=== PATIENT | male | born 1935 | race Caucasian/White ===

== ENCOUNTER → 2016-07-07 | Outpatient (CLI) | payer OTHER | END | disposition home or self-care (01) | LOC: C.PATHSPEC 14:38 | PROVIDERS: ATTEND Dermatology | DX: C44.619 Basal cell carcinoma of skin of left upper limb, including shoulder (principal) ==

== ENCOUNTER → 2016-08-06 | Outpatient (CLI) | payer OTHER ==
[2016-08-06 16:41] LABS: BASO % 0.2 %; BASO ABS # 0.01 K/uL (0-0.2); COMPLETE YES; EOS % 2.6 %; HEMATOCRIT 43.6 % (42-52); IG% 0.2 %; LYMPH % 36.9 %; LYMPH ABS # 2.43 K/uL (1.2-3.4); MEAN CORPUSCULAR HEMOGLOBIN 30.7 pg (25-34); MEAN CORPUSCULAR HGB CONC 35.3 g/dl (32-36); MEAN PLATELET VOLUME 11.2 fL (7.4-10.4); MONO % 9.9 %; NEUT % 50.2 %; PLATELET COUNT 144 K/uL (130-400); RED BLOOD COUNT 5.01 M/uL (4.7-6.1); WHITE BLOOD COUNT 6.58 K/uL (4.8-10.8)
[2016-08-06 16:48] LABS: BLOOD UREA NITROGEN 15 mg/dl (7-18); BUN/CREATININE RATIO 16.1 (10-20); CALCIUM 8.9 mg/dl (8.5-10.1); CARBON DIOXIDE 28 mmol/L (21-32); CHLORIDE 102 mmol/L (98-107); CREATININE 0.94 mg/dl (0.60-1.40); GLUCOSE 179 mg/dl (70-99); POTASSIUM 4.2 mmol/L (3.5-5.1); SODIUM 137 mmol/L (136-145)
== END | disposition home or self-care (01) ==
LOC: C.LAB1850 14:58
PROVIDERS: ATTEND Internal Medicine
DX: R31.9 Hematuria, unspecified (principal)

== ENCOUNTER → 2016-08-10 | Outpatient (CLI) | payer OTHER ==
--- NOTE | 2016-08-10 09:10 | DIAGNOSTIC IMAGING REPORT ---
ABDOMINAL AORTIC ULTRASOUND CLINICAL HISTORY: Status post abdominal aortic aneurysm repair. Blood in urine. COMPARISON STUDY: CTA November 23, 2013 and abdominal aortic ultrasound April 30, 2006. FINDINGS: The proximal abdominal aorta is obscured by overlying bowel gas. A bifurcated aortoiliac graft is noted although suboptimally assessed by ultrasound. The aneurysm sac of the distal abdominal aorta measures 3.5 x 3.4 cm. This has decreased in size since exam of November 23, 2013. Stent appears grossly patent. 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 This is unchanged. IMPRESSION: 1. Redemonstration of the bifurcated aortoiliac stent graft, suboptimally assessed by ultrasound. Aneurysm sac has likely decreased in size since exam of November 23, 2013. 2. No change in size of the ectatic bilateral common iliac arteries since prior CT. Electronically signed by: Nura Dumont M.D. 08/10/2016 9:08 AM Dictated Date/Time: 08/10/2016 9:03 AM
== END | disposition home or self-care (01) ==
LOC: C.ULTR 07:42
PROVIDERS: ATTEND Internal Medicine
DX: R31.9 Hematuria, unspecified (principal); Z98.890 Other specified postprocedural states

== ENCOUNTER → 2016-08-27 | Outpatient (CLI) | payer OTHER ==
[~2016-08-27] MED LIST: OPTIRAY 320 IV PRN
--- NOTE | 2016-08-27 13:19 | DIAGNOSTIC IMAGING REPORT ---
CT ABD/PELVIS COMBO CLINICAL HISTORY: Abdominal pain, elevated PSA. Anal fissure. COMPARISON STUDY: 11/23/2013 TECHNIQUE: Unenhanced images were obtained through the abdomen and pelvis. The patient was injected with 50 cc of Optiray 320. After 5 minute delay, the patient was reimaged in a dynamic helical fashion during intravenous administration of an additional 66 cc of Optiray 320 CT DOSE: 1724.84 mGycm FINDINGS: Lower chest: There is basilar interstitial thickening/scarring. Underlying emphysema is suspected. Liver: There is an indeterminate 18 mm hypodense lesion within the right hepatic lobe immediately beneath the dome of the diaphragm. This was not visualized the prior study. No additional hepatic lesions are visualized. Gallbladder: Unremarkable. Spleen: Normal in size and attenuation. Pancreas: Unremarkable. Adrenal glands: Unremarkable. Kidneys: No renal, ureteral, or bladder calculi are visualized. No solid renal masses are visualized. No collecting system lesions are evident. Bowel: There are no transition zones indicate bowel obstruction. The appendix appears normal. There is no acute diverticulitis. Peritoneum: There is no intraperitoneal free air or abdominal ascites. Vasculature: There is aortic aneurysm which has been repaired utilizing aorta iliac endograft. Adenopathy: None. Pelvic viscera: The prostate is enlarged measuring 57 mm. Skeletal structures: No destructive osseous lesions are seen. IMPRESSION: 1. No renal, ureteral, or bladder calculi identified 2. Prostatomegaly 3. No evidence of bowel obstruction. No evidence of free air 4. Indeterminate 19 mm hypodense lesion within the right lobe of the liver. This was not visualized on the prior 2013 study. Electronically signed by: Bill Akers M.D. 08/27/2016 1:18 PM Dictated Date/Time: 08/27/2016 1:10 PM
== END | disposition home or self-care (01) ==
LOC: C.CTS 12:39
PROVIDERS: ATTEND Urology
DX: C44.41 Basal cell carcinoma of skin of scalp and neck (principal); C44.619 Basal cell carcinoma of skin of left upper limb, including shoulder; K21.9 Gastro-esophageal reflux disease without esophagitis; K60.2 Anal fissure, unspecified; R31.9 Hematuria, unspecified; L57.0 Actinic keratosis; R97.20 Elevated prostate specific antigen [PSA]; N40.0 Benign prostatic hyperplasia without lower urinary tract symptoms

== ENCOUNTER → 2016-09-21 | Outpatient (CLI) | payer OTHER ==
[2016-09-21 11:10] LABS: BASO % 0.2 %; BASO ABS # 0.01 K/uL (0-0.2); COMPLETE YES; EOS % 3.7 %; HEMATOCRIT 43.8 % (42-52); IG% 0.2 %; LYMPH % 32.6 %; LYMPH ABS # 1.93 K/uL (1.2-3.4); MEAN CELL VOLUME 86.1 fL (80-100); MEAN CORPUSCULAR HEMOGLOBIN 30.5 pg (25-34); MEAN CORPUSCULAR HGB CONC 35.4 g/dl (32-36); MEAN PLATELET VOLUME 10.9 fL (7.4-10.4); MONO % 7.1 %; NEUT % 56.2 %; PLATELET COUNT 132 K/uL (130-400); RED BLOOD COUNT 5.09 M/uL (4.7-6.1); WHITE BLOOD COUNT 5.92 K/uL (4.8-10.8)
[2016-09-21 11:49] LABS: ALT/SGPT 38 U/L (12-78); AST/SGOT 22 U/L (15-37); BLOOD UREA NITROGEN 13 mg/dl (7-18); BUN/CREATININE RATIO 12.6 (10-20); CALCIUM 8.8 mg/dl (8.5-10.1); CARBON DIOXIDE 30 mmol/L (21-32); CHLORIDE 102 mmol/L (98-107); GLUCOSE 252 mg/dl (70-99); POTASSIUM 4.1 mmol/L (3.5-5.1); SODIUM 139 mmol/L (136-145)
[2016-09-21 11:52] LABS: ALB/GLOB RATIO 1.1 (0.9-2); ALKALINE PHOSPHATASE 73 U/L (45-117); CHOLESTEROL 136 mg/dl (0-200); CHOLESTEROL/HDL RATIO 3.5; HDL CHOLESTEROL 39 mg/dl; LDL CHOLESTEROL CALCULATED 63 mg/dl; TRIGLYCERIDES 171 mg/dl (0-150); VERY LOW DENSITY LIPOPROT CALC 34 mg/dl
[2016-09-21 12:02] LABS: RATIO 20.9 mcg/mg (0-30.0)
[2016-09-21 12:27] LABS: ESTIMATED AVERAGE GLUCOSE 186 mg/dl; HA1C FLAG Normal (Normal)
== END | disposition home or self-care (01) ==
LOC: C.LAB1850 10:20
PROVIDERS: ATTEND Internal Medicine
DX: E11.65 Type 2 diabetes mellitus with hyperglycemia (principal); I10 Essential (primary) hypertension

== ENCOUNTER → 2017-03-24 | Outpatient (CLI) | payer OTHER ==
[2017-03-24 12:59] LABS: ALT/SGPT 34 U/L (12-78); AST/SGOT 23 U/L (15-37); BLOOD UREA NITROGEN 13 mg/dl (7-18); BUN/CREATININE RATIO 14.6 (10-20); CALCIUM 9.1 mg/dl (8.5-10.1); CARBON DIOXIDE 28 mmol/L (21-32); CHLORIDE 103 mmol/L (98-107); CREATININE 0.87 mg/dl (0.60-1.40); GLUCOSE 157 mg/dl (70-99); POTASSIUM 4.2 mmol/L (3.5-5.1); SODIUM 139 mmol/L (136-145)
[2017-03-24 13:02] LABS: ALB/GLOB RATIO 1.3 (0.9-2); ALKALINE PHOSPHATASE 80 U/L (45-117)
[2017-03-24 13:08] LABS: ESTIMATED AVERAGE GLUCOSE 177 mg/dl; HA1C FLAG Normal (Normal)
[2017-03-24 13:14] LABS: RATIO 32.6 mcg/mg (0-30.0)
== END | disposition home or self-care (01) ==
LOC: C.LAB1850 09:50
PROVIDERS: ATTEND Internal Medicine
DX: E11.65 Type 2 diabetes mellitus with hyperglycemia (principal)

== ENCOUNTER → 2017-07-06 | Outpatient (CLI) | payer OTHER | END | disposition home or self-care (01) | LOC: C.PATHSPEC 16:42 | PROVIDERS: ATTEND Dermatology | DX: C44.91 Basal cell carcinoma of skin, unspecified (principal) ==

== ENCOUNTER → 2017-07-26 | Outpatient (CLI) | payer OTHER | END | disposition home or self-care (01) | LOC: C.LABSPEC 16:41 | PROVIDERS: ATTEND Nurse Practitioner Adult Health | DX: R32 Unspecified urinary incontinence (principal); R30.0 Dysuria ==

== ENCOUNTER → 2017-09-13 | Outpatient (CLI) | payer OTHER ==
[2017-09-13 10:06] LABS: ALT/SGPT 26 U/L (12-78); BLOOD UREA NITROGEN 14 mg/dl (7-18); CALCIUM 9.3 mg/dl (8.5-10.1); CARBON DIOXIDE 31 mmol/L (21-32); CHOLESTEROL 117 mg/dl (0-200); CREATININE 0.91 mg/dl (0.60-1.40); GLUCOSE 144 mg/dl (70-99); POTASSIUM 4.2 mmol/L (3.5-5.1); SODIUM 138 mmol/L (136-145)
[2017-09-13 10:07] LABS: HEMOGLOBIN A1C 7.4 % (4.5-5.6)
[2017-09-13 10:17] LABS: ALKALINE PHOSPHATASE 75 U/L (45-117); AST/SGOT 21 U/L (15-37); LDL CHOLESTEROL CALCULATED 57 mg/dl; TOTAL PROTEIN 7.5 gm/dl (6.4-8.2)
== END | disposition home or self-care (01) ==
LOC: C.LAB1850 08:24
PROVIDERS: ATTEND Internal Medicine
DX: E11.65 Type 2 diabetes mellitus with hyperglycemia (principal)

== ENCOUNTER → 2017-11-03 | Outpatient (CLI) | payer OTHER | END | disposition home or self-care (01) | LOC: C.PATHSPEC 17:27 | PROVIDERS: ATTEND Dermatology | DX: L82.1 Other seborrheic keratosis (principal) ==

== ENCOUNTER 2019-06-08 06:17 | Inpatient (IN) ==
[2019-06-08] MEDS ORDERED: SODIUM CHLORIDE 0.9% 1000ML 1,000 ML IV SCH (06:48)
[2019-06-08 06:54] LABS: Basophils # (auto) 0.02 K/uL (0-0.2); Basophils % (auto) 0.2 %; Eosinophils # (auto) 0.14 K/uL (0-0.5); Eosinophils % (auto) 1.4 %; Hematocrit (blood only) 39.6 % (42-52); Hemoglobin 13.8 g/dL (14.0-18.0); Immature Granulocytes # (auto) 0.09 K/uL (0.00-0.02); Immature Granulocytes % (auto) 0.9 %; Lymphocytes # (auto) 1.76 K/uL (1.2-3.4); Lymphocytes % (auto) 17.6 %; Mean Corpuscular Hemoglobin 30.3 pg (25-34); Mean Corpuscular Hgb Conc 34.8 g/dL (32-36); Mean Corpuscular Volume 86.8 fL (80-100); Mean Platelet Volume 10.8 fL (7.4-10.4); Monocytes # (auto) 0.74 K/uL (0.11-0.59); Monocytes % (auto) 7.4 %; Neutrophils # (auto) 7.26 K/uL (1.4-6.5); Neutrophils % (auto) 72.5 %; Platelet Count 256 K/uL (130-400); RDW Coefficient of Variation 13.9 % (11.5-14.5); RDW Standard Deviation 43.8 fL (36.4-46.3); Red Blood Count 4.56 M/uL (4.7-6.1); White Blood Count 10.01 K/uL (4.8-10.8)
[2019-06-08 07:01] LABS: Albumin Level 2.5 gm/dl (3.4-5.0); BUN Creatinine Ratio 16.7 (10-20); Calcium 8.8 mg/dl (8.5-10.1); Creatinine Clr Calc Pharmacy 81.2 ml/min; Est GFR (African American) 99.2; Est GFR (Non-African American) 85.6; Magnesium 2.2 mg/dl (1.8-2.4)
[2019-06-08 07:06] LABS: Albumin Globulin Ratio 0.5 (0.9-2); Bilirubin,Total 0.9 mg/dl (0.2-1); Globulin 4.7 gm/dl (2.5-4.0); Total Protein 7.2 gm/dl (6.4-8.2); Troponin I 0.017 ng/ml (0-0.045)
--- NOTE | 2019-06-08 07:19 | Emergency Department Note ---
Entered by Alexis Fisher acting as a scribe for Torrie Juarez DO History of Present Illness General Chief complaint: Cough Stated complaint: COUGH Time Seen by Provider: 06/08/19 06:32 Source: patient History of Present Illness Provider complaint: Cough Onset (ago): week(s) 2 Location: chest Pain Consistency: + constant Relieved By: + none Associated symptoms: + denies other symptoms (Diarrhea), + fever/chills (No fevers), + loss of appetite and + weakness; no chest pain and no nausea/vomiting The patient is an 83 year old male who presents to the Emergency Room with complaints of a constant dry cough that has been ongoing for the past 2 weeks. The patient states the cough is dry but sometimes he is able to bring up a white phlegm. The patient reports that nothing seems to help improve it. Per the patient's , the patient has been getting increasingly weak since the onset of the cough. He also has lost his appetite. The patient adds that he has intermittent chills but denies any fevers, chest pain, nausea, vomiting, or diarrhea. The patient admits to being around people with similar symptoms. Pt states he did get a flu shot this year. No prior pneumonia shot. No recent travel. Home Medications Home Medications Medication Instructions Recorded Confirmed Type hydrochlorothiazide 12.5 mg tablet 12.5 mg PO DAILY #30 tab 01/23/19 06/08/19 Rx metoprolol tartrate 50 mg tablet 50 mg PO BID #60 tab 02/09/19 06/08/19 Rx blood sugar diagnostic #50 ea 02/16/19 03/28/19 Rx aspirin 81 mg tablet,delayed 81 mg PO BID #30 tab 03/26/19 06/08/19 History release cyanocobalamin (vitamin B-12) 1,000 mcg PO DAILY #100 tab 03/26/19 06/08/19 History 1,000 mcg tablet simvastatin 20 mg tablet 20 mg PO QPM 03/26/19 06/08/19 History nitroglycerin 0.4 mg sublingual 0.4 mg SL ONCE PRN #30 tab 03/28/19 06/08/19 Rx tablet Centrum Silver 1 tab PO DAILY 06/08/19 06/08/19 History cholecalciferol (vitamin D3) 2,000 unit PO DAILY 06/08/19 06/08/19 History [Vitamin D3] omega [id number]-gob-fish oil [Fish Oil] 1 cap PO DAILY 06/08/19 06/08/19 History pyridoxine (vitamin B6) [Vitamin 100 mg PO DAILY 06/08/19 06/08/19 History B-6] azithromycin [Zithromax] 500 mg PO QAM #1 tab 06/09/19 Rx cefdinir 300 mg PO BID #1 cap 06/09/19 Rx ipratropium-albuterol 3 ml NEB QIDR #1 ml 06/09/19 Rx Allergies Allergy/AdvReac Type Severity Reaction Status Date / Time No Known Allergies Allergy Unverified 06/08/19 06:30 Past Med/Surg History Medical History CVA (cerebral vascular accident) (Acute) Diabetes mellitus type 2, uncontrolled (Acute) Gait disturbance (Acute) Generalized osteoarthritis of multiple sites (Acute) History of elevated PSA (Acute) Hyperlipidemia (Acute) Hypertension (Acute) Impaired sensation (Acute) Liver lesion (Acute) Low back pain (Acute) Pulmonary emphysema (Acute) Seborrheic keratosis (Acute) Skin lesion of face (Acute) Urinary incontinence (Acute) Vitamin B12 deficiency (Acute) Surgical History S/P aortic aneurysm repair S/P arthroscopic partial medial meniscectomy S/P arthroscopy of knee S/P CABG x 3 S/P rotator cuff repair Status post AAA (abdominal aortic aneurysm) repair (Acute) Family History Brother Bowel cancer Non Hodgkin's lymphoma Mother Cardiac cancer Diabetes Uterine cancer Father Gallbladder cancer Social History Preferred Language: Luxembourgish Communication Ability: Effective Visual Impairment: No Limitations Hearing Ability: Normal Tax Specialist Required: No Beliefs That Will Affect Care: None marital status: Current Living Situation: Spouse current occupational status: retired Feels Safe at Home: Yes Smoking Status: Former smoker Hx Alcohol Use: No Hx Substance Use: No Seatbelt Use: always Review of Systems See HPI for pertinent positives & negatives. and A total of 10 systems reviewed and were otherwise negative Physical Exam Vital Signs Vital Signs - 24 hr 06/08/19 06:25 06/08/19 07:41 06/08/19 08:24 Temperature 98.2 F Temperature Source Oral Pulse Rate 80 Pulse Rate [Right Finger] 68 72 Respiratory Rate 18 20 16 Respiratory Effort / Characteristics Non-Labored Spontaneous Respiratory Depth Normal Blood Pressure 143/74 H Blood Pressure [Right Arm] 130/74 Blood Pressure Mean 97 Blood Pressure Mean [Right Arm] 92 Pulse Oximetry 96 96 97 Oxygen Delivery Method Room Air Room Air Room Air Sepsis Recent Fever Within 48 Hours No Sepsis New/Unexplained Change in Mental Status No Sepsis Action Taken by Nursing No Action Required 06/08/19 08:46 Temperature Temperature Source Pulse Rate Pulse Rate [Right Finger] 92 H Respiratory Rate 24 Respiratory Effort / Characteristics Non-Labored Respiratory Depth Normal Blood Pressure Blood Pressure [Right Arm] 147/70 H Blood Pressure Mean Blood Pressure Mean [Right Arm] 95 Pulse Oximetry 96 Oxygen Delivery Method Room Air Sepsis Recent Fever Within 48 Hours Sepsis New/Unexplained Change in Mental Status Sepsis Action Taken by Nursing GENERAL: alert, well appearing, well nourished, no distress, non-toxic EYE EXAM: normal conjunctiva, PERRL and EOM's grossly intact OROPHARYNX: no exudate, no erythema, lips, buccal mucosa, and tongue normal and mucous membranes are dry NECK: supple, no nuchal rigidity, no adenopathy, non-tender LUNGS: Diminished breath sounds bilaterally with no wheezes, rhonchi, or rales. Normal chest wall mechanics HEART: no murmurs, S1 normal and S2 normal CHEST: Sternotomy scar on chest. ABDOMEN: abdomen soft, non-tender, normo-active bowel sounds, no masses, no rebound or guarding. BACK: Back is symmetrical on inspection and there is no deformity, no midline tenderness, no CVA tenderness. SKIN: no rashes and no bruising UPPER EXTREMITIES: upper extremities are grossly normal. FROM, nml pulses b/l. LOWER EXTREMITIES: 2+ pedal edema, 1+ pretibial edema, FROM, nml pulses b/l. NEURO EXAM: Normal sensorium, cranial nerves II-XII grossly intact, normal speech, no gross weakness of arms, no gross weakness of legs. Course Course 0639: Past medical records reviewed. The patient was evaluated in room B05, and a complete history and physical examination were performed. 0759: I reevaluated the patient and he is resting comfortably in bed. He did inform me that he is a former smoker having quit in 1988. I also updated him on results and we discussed the treatment plan which he is agreeable to. 0920: I discussed the patient's case with the resident Dr. Lacy who is working under Dr. Kane [facility]ULL[facility] Hospitalist. They agreed to accept the patient for further evaluation. Consultations Consultation #1: I discussed the patient's case with the resident Dr. Lacy who is working under Dr. Kane BULLOCK Hospitalist. They agreed to accept the patient for further evaluation. Time: 09:20 Administered Medications Discontinued Medications Albuterol (Duoneb) 3 ml NEB NOW STA Stop: 06/08/19 08:03 Last Admin: 06/08/19 08:22 Dose: 3 ml Documented by: [id number] Albuterol (Duoneb) 3 ml NEB QIDR [facility] Stop: 06/09/19 15:01 Last Admin: 06/09/19 15:50 Dose: 3 ml Documented by: [id number] Admin: 06/09/19 11:03 Dose: 3 ml Documented by: [id number] Admin: 06/09/19 07:35 Dose: 3 ml Documented by: [id number] Admin: 06/08/19 19:58 Dose: 3 ml Documented by: [id number] Admin: 06/08/19 15:27 Dose: 3 ml Documented by: [id number] Admin: 06/08/19 13:33 Dose: Not Given Documented by: [id number] Aspirin (Ecotrin Ectab) 81 mg PO BID [facility] Stop: 07/08/19 20:59 Last Admin: 06/09/19 09:20 Dose: 81 mg Documented by: [id number] Admin: 06/08/19 20:08 Dose: 81 mg Documented by: [id number] Azithromycin (Zithromax) 500 mg PO NOW ONE Stop: 06/08/19 07:43 Last Admin: 06/08/19 10:52 Dose: 500 mg Documented by: [id number] Azithromycin (Zithromax) 500 mg PO QAM [facility] Stop: 06/16/19 08:59 Last Admin: 06/09/19 09:21 Dose: 500 mg Documented by: [id number] Cyanocobalamin (Vitamin B-12) 1,000 mcg PO DAILY [facility] Stop: 07/09/19 08:59 Last Admin: 06/09/19 09:20 Dose: 1,000 mcg Documented by: [id number] Enoxaparin Sodium (Lovenox) 40 mg SQ Q24H [facility] Stop: 07/08/19 12:59 Last Admin: 06/09/19 13:31 Dose: 40 mg Documented by: [id number] Admin: 06/08/19 13:46 Dose: 40 mg Documented by: [id number] Hydrochlorothiazide (Hctz) 12.5 mg PO DAILY [facility] Stop: 07/09/19 08:59 Last Admin: 06/09/19 09:19 Dose: Not Given Documented by: [id number] Sodium Chloride (Nss 1000ml) 1,000 mls @ 250 mls/hr IV .Q4H [facility] Stop: 06/08/19 10:47 Last Infusion: 06/08/19 16:14 Dose: 0 mls/hr Documented by: [id number] Admin: 06/08/19 07:40 Dose: 250 mls/hr Documented by: [id number] Ceftriaxone Sodium (Rocephin) 2,000 mg in 70 mls @ 140 mls/hr IV NOW STA Stop: 06/08/19 08:11 Last Infusion: 06/08/19 09:28 Dose: 0 mls/hr Documented by: [id number] Admin: 06/08/19 08:42 Dose: 140 mls/hr Documented by: [id number] Piperacillin Sod/Tazobactam Sod (Zosyn) 4.5 gm in 120 mls @ 240 mls/hr IV NOW ONE Stop: 06/08/19 08:37 Last Infusion: 06/08/19 10:56 Dose: 0 mls/hr Documented by: [id number] Admin: 06/08/19 09:29 Dose: 240 mls/hr Documented by: [id number] Ceftriaxone Sodium 2,000 mg/ (Dextrose) 70 mls @ 140 mls/hr IV Q24H [facility]; Protocol Stop: 06/16/19 08:59 Last Infusion: 06/09/19 09:49 Dose: 0 mls/hr Documented by: [id number] Admin: 06/09/19 09:12 Dose: 140 mls/hr Documented by: [id number] Insulin Aspart (Novolog Flexpen) 0 units SC ACHS [facility] Stop: 07/08/19 11:48 Last Admin: 06/09/19 12:38 Dose: Not Given Documented by: [id number] Cosigned by: [id number] Admin: 06/09/19 09:52 Dose: Not Given Documented by: [id number] Cosigned by: [id number] Admin: 06/08/19 20:13 Dose: Not Given Documented by: [id number] Cosigned by: [id number] Admin: 06/08/19 18:13 Dose: 3 units Documented by: [id number] Cosigned by: [id number] Admin: 06/08/19 13:46 Dose: 3 units Documented by: [id number] Cosigned by: [id number] Ioversol (Optiray 320 100ml) 93 ml IV ONCE PRN PRN Reason: Interaction Checking Stop: 06/12/19 07:51 Last Admin: 06/08/19 07:52 Dose: 93 ml Documented by: [id number] Metoprolol Tartrate (Lopressor) 50 mg PO BID [facility] Stop: 07/08/19 20:59 Last Admin: 06/09/19 09:20 Dose: 50 mg Documented by: [id number] Admin: 06/08/19 20:09 Dose: 50 mg Documented by: [id number] Prednisone (Prednisone) 40 mg PO Q24H [facility] Stop: 07/08/19 11:48 Last Admin: 06/09/19 12:33 Dose: 40 mg Documented by: [id number] Admin: 06/08/19 13:45 Dose: 40 mg Documented by: [id number] Pyridoxine HCl (Vitamin B-6) 100 mg PO DAILY [facility] Stop: 07/09/19 08:59 Last Admin: 06/09/19 09:20 Dose: 100 mg Documented by: [id number] Simvastatin (Zocor) 20 mg PO QPM [facility] Stop: 07/08/19 20:59 Last Admin: 06/08/19 20:09 Dose: 20 mg Documented by: [id number] Vitamin D (Vitamin D3) 2,000 units PO DAILY [facility] Stop: 07/09/19 08:59 Last Admin: 06/09/19 09:21 Dose: 2,000 units Documented by: [id number] Medical Decision Making Differential Diagnosis Differential diagnoses includes but is not limited to pneumonia, bronchitis, COPD/Asthma exacerbation, pneumothorax, pulmonary embolism, congestive heart failure, acute coronary syndrome, amongst others. Medical Records Attestation: I reviewed the patient's medical records. Home Medications Current Medication List: was personally reviewed by me Laboratory Data Attestation: I reviewed the patient's lab results. Result diagrams: 06/09/19 07:38 06/09/19 07:38 Lab Results 06/08/19 06/08/19 06/08/19 Range/Units 06:02 06:02 06:02 WBC 10.01 (4.8-10.8) K/uL RBC 4.56 L (4.7-6.1) M/uL Hgb 13.8 L (14.0-18.0) g/dL Hct 39.6 L (42-52) % MCV 86.8 (80-100) fL MCH 30.3 (25-34) pg MCHC 34.8 (32-36) g/dL RDW Std Deviation 43.8 (36.4-46.3) fL RDW Coeff of Gabriela 13.9 (11.5-14.5) % Plt Count 256 (130-400) K/uL MPV 10.8 H (7.4-10.4) fL Immature Gran % (Auto) 0.9 % Neut % (Auto) 72.5 % Lymph % (Auto) 17.6 % Pope % (Auto) 7.4 % Eos % (Auto) 1.4 % Baso % (Auto) 0.2 % Immature Gran # (Auto) 0.09 H (0.00-0.02) K/uL Neut # (Auto) 7.26 H (1.4-6.5) K/uL Lymph # (Auto) 1.76 (1.2-3.4) K/uL Pope # (Auto) 0.74 H (0.11-0.59) K/uL Eos # (Auto) 0.14 (0-0.5) K/uL Baso # (Auto) 0.02 (0-0.2) K/uL Sodium 135 L (136-145) mmol/L Potassium 4.0 (3.5-5.1) mmol/L Chloride 101 (98-107) mmol/L Carbon Dioxide 26 (21-32) mmol/L Anion Gap 8.0 (3-11) BUN 13 (7-18) mg/dl Creatinine 0.76 (0.6-1.4) mg/dl Est Cr Clr Drug Dosing 81.2 ml/min Est GFR ( Amer) 99.2 Est GFR (Non-Af Amer) 85.6 BUN/Creatinine Ratio 16.7 (10-20) Glucose 150 H (70-99) mg/dl Calcium 8.8 (8.5-10.1) mg/dl Magnesium 2.2 (1.8-2.4) mg/dl Total Bilirubin 0.9 (0.2-1) mg/dl AST 67 H (15-37) U/L ALT 73 (12-78) U/L Alkaline Phosphatase 109 (45-117) U/L Troponin I 0.017 (0-0.045) ng/ml NT-Pro-B Natriuret Pep 2210 H (0-1800) pg/ml Total Protein 7.2 (6.4-8.2) gm/dl Albumin 2.5 L (3.4-5.0) gm/dl Globulin 4.7 H (2.5-4.0) gm/dl Albumin/Globulin Ratio 0.5 L (0.9-2) Lipase 116 (73-393) U/L Procalcitonin 0.06 (0-0.5) ng/ml Influenza Type A (PCR) (Neg) Influenza Type B (PCR) (Neg) 06/08/19 Range/Units 06:46 WBC (4.8-10.8) K/uL RBC (4.7-6.1) M/uL Hgb (14.0-18.0) g/dL Hct (42-52) % MCV (80-100) fL MCH (25-34) pg MCHC (32-36) g/dL RDW Std Deviation (36.4-46.3) fL RDW Coeff of Gabriela (11.5-14.5) % Plt Count (130-400) K/uL MPV (7.4-10.4) fL Immature Gran % (Auto) % Neut % (Auto) % Lymph % (Auto) % Pope % (Auto) % Eos % (Auto) % Baso % (Auto) % Immature Gran # (Auto) (0.00-0.02) K/uL Neut # (Auto) (1.4-6.5) K/uL Lymph # (Auto) (1.2-3.4) K/uL Pope # (Auto) (0.11-0.59) K/uL Eos # (Auto) (0-0.5) K/uL Baso # (Auto) (0-0.2) K/uL Sodium (136-145) mmol/L Potassium (3.5-5.1) mmol/L Chloride (98-107) mmol/L Carbon Dioxide (21-32) mmol/L Anion Gap (3-11) BUN (7-18) mg/dl Creatinine (0.6-1.4) mg/dl Est Cr Clr Drug Dosing ml/min Est GFR ( Amer) Est GFR (Non-Af Amer) BUN/Creatinine Ratio (10-20) Glucose (70-99) mg/dl Calcium (8.5-10.1) mg/dl Magnesium (1.8-2.4) mg/dl Total Bilirubin (0.2-1) mg/dl AST (15-37) U/L ALT (12-78) U/L Alkaline Phosphatase (45-117) U/L Troponin I (0-0.045) ng/ml NT-Pro-B Natriuret Pep (0-1800) pg/ml Total Protein (6.4-8.2) gm/dl Albumin (3.4-5.0) gm/dl Globulin (2.5-4.0) gm/dl Albumin/Globulin Ratio (0.9-2) Lipase (73-393) U/L Procalcitonin (0-0.5) ng/ml Influenza Type A (PCR) Neg for Influ A (Neg) Influenza Type B (PCR) Neg for Influ B (Neg) Imaging Data Radiologist's Impression: Radiology results as stated below per my review and the radiologist's interpretation: XR chest 2V PA/lateral CLINICAL HISTORY: 83 years-old Male presenting with cough. TECHNIQUE: Portable upright AP view of the chest was obtained. COMPARISON: 10/28/2009. FINDINGS: Median sternotomy wires. Atherosclerosis of the aortic arch. Cardiac silhouette normal in size. Dense patchy peripheral and basilar predominant opacities bilaterally. Underlying coarsened reticular lung markings. Trace left pleural effusion may be present. No pneumothorax. Possible underlying osteopenia. Upper abdomen normal. IMPRESSION: 1. Patchy bilateral peripheral and basilar predominant infiltrates concerning for multifocal pneumonia. Further evaluation with chest CT to be considered. Electronically signed by: Raul Martin M.D. 06/08/2019 7:22 AM ADDENDUM Additional impression: 6. Indeterminate 5 cm hepatic mass. The report will be called/faxed according to standard departmental protocol. Electronically signed by: Raul Martin M.D. 06/08/2019 8:[address] chest w con CLINICAL HISTORY: 83 years-old Male presenting with multilobar pneumonia. TECHNIQUE: Multidetector CT imaging of the chest was performed after the administration of intravenous contrast. IV contrast: 93 mL of Optiray 320. One or more dose lowering techniques were used consistent with the principles of ALARA (as low as reasonably achievable), including automatic exposure control, mA or kV adjustment to individual patient size, and/or use of iterative reconstruction. COMPARISON: Chest x-ray performed earlier today. CT DOSE (mGy.cm): The estimated cumulative dose is 457.15 mGy.cm. FINDINGS: Fleet Assistant topogram: Median sternotomy wires. Soft tissues: Normal thyroid and thoracic inlet. Prominent subcarinal lymph node conglomerate. Small bilateral hilar lymph nodes also noted. Several lymph nodes demonstrate calcification in both the mediastinum and j carlos suggesting a history of chronic granulomatous disease. Atherosclerosis of the aorta. Median sternotomy with postsurgical changes of coronary artery bypass grafting. Normal heart size. Coronary artery and aortic valve calcification. Small bilateral pleural effusions, left greater than right. Heterogeneous lesion in the right hepatic lobe measuring nearly 5 cm, indeterminate. Lungs and airways: No pneumothorax. Trace debris noted in the lower trachea. Pulmonary arteries are not significantly enlarged relative to adjacent bronchi. No interlobular septal thickening. Extensive peripheral and basilar predominant groundglass and solid consolidation involving the lungs bilaterally though greater on the left. Masslike consolidation is evident in the left lower lobe. Patchy scattered ill-defined groundglass opacities also noted. Few nodules are suggested though the multifocal consolidation limits evaluation for pulmonary nodule. Musculoskeletal: Degenerative changes of the spine. Flowing anterior osteophytosis or ossification of the anterior longitudinal ligament consistent with diffuse idiopathic skeletal hyperostosis. IMPRESSION: 1. Multifocal bilateral peripheral and dependent predominant groundglass and solid consolidation. Some regions of solid consolidation or masslike most notably in the left lower lobe. The appearance is favored to represent multifocal pneumonia. Follow-up is necessary to ensure the absence of underlying neoplasm. 2. Small bilateral parapneumonic effusions, left greater than right. 3. Suspected reactive mediastinal and hilar lymphadenopathy. 4. Evidence of old granulomatous disease. 5. Postsurgical changes of CABG. Electronically signed by: Raul Martin M.D. 06/08/2019 8:10 AM ECG Data Attestation: I personally reviewed and interpreted this ECG as follows: Indication: + SOB/dyspnea and + weakness Rate (beats per minute): 74 Rhythm: + normal sinus ECG Intervals/blocks: + Normal QRS, + Normal QT, + Normal VA and + Normal QT-c (452) ECG Varna: + Normal ECG ST segments: no ST depression and no ST elevation ECG Findings: no PACs and no PVCs Blood Pressure Blood Pressure Findings: Elevated blood pressure Blood Pressure Disposition: further management by hospitalist MDM Narrative PORT/PSI score 111 Pt well appearing despite findings during evaluation. No hypoxia and no significant WOB. Other labs reassuring. Pt with known liver mass, no pursuing any treatment. Pt found to have multifocal pneumonia which would certainly coincide with symptoms. Concern given mass for occult neoplasm and post obstructive infection also. VS stable while in the ER. I do not suspect occult cardiac etiology, PE, bacteremia/sepsis. Pt and family aware of results and in agreement with the plan. Impression & Plan Multifocal pneumonia, Liver mass, Dyspnea, Weakness Discharge Plan Visit Data *Final* Discharge Date/Time: 06/08/19 11:15 Chief Complaint: Cough Stated Complaint: COUGH ED Provider: Torrie Juarez Discharge Problem: Multifocal pneumonia, Liver mass, Dyspnea, Weakness Patient Disposition: Admitted As Inpatient Discharge Instructions Interventions: ED Discharge Assessment Last Done: 06/08/19 11:15 Discharge Problem: Dyspnea Qualifiers: Dyspnea type: unspecified Qualified Code(s): R06.00 - Dyspnea, unspecified The scribe's documentation has been prepared under my direction and personally reviewed by me in its entirety. I confirm that the note above accurately reflects all work, treatment, procedures, and medical decision making performed by me.
--- NOTE | 2019-06-08 07:24 | XRay Report ---
XR chest 2V PA/lateral CLINICAL HISTORY: 83 years-old Male presenting with cough. TECHNIQUE: Portable upright AP view of the chest was obtained. COMPARISON: 10/28/2009. FINDINGS: Median sternotomy wires. Atherosclerosis of the aortic arch. Cardiac silhouette normal in size. Dense patchy peripheral and basilar predominant opacities bilaterally. Underlying coarsened reticular lung markings. Trace left pleural effusion may be present. No pneumothorax. Possible underlying osteopeni a. Upper abdomen normal. IMPRESSION: 1. Patchy bilateral peripheral and basilar predominant infiltrates concerning for multifocal pneumon ia. Further evaluation with chest CT to be considered. Electronically signed by: Raul Martin M.D. 06/08/2019 7:22 AM
[2019-06-08 07:29] LABS: Influenza A virus by PCR Neg for Influ A (Neg); Influenza B virus by PCR Neg for Influ B (Neg)
[2019-06-08] MEDS ORDERED: cefTRIAXone SODIUM 2,000 MG/70 ML BAG IV STA (07:42)
[2019-06-08] MEDS ORDERED: AZITHROMYCIN 250 MG TAB PO ONE (07:42)
[2019-06-08] MEDS ORDERED: IOVERSOL 100ml IV PRN (07:52)
[2019-06-08] MEDS ORDERED: ALBUT/IPRATROP 3MG/0.5MG NEB 3 ML VIAL NEB STA (08:02)
[2019-06-08] MEDS ORDERED: PIPERACILL/TAZOBAC CONSULT ACTIVE PRN (08:08)
[2019-06-08] MEDS ORDERED: PIPERACILLIN/TAZOBACTAM 4.5 GM/120 ML BAG IV ONE (08:08)
--- NOTE | 2019-06-08 08:11 | CT Scan Report ---
CT chest w con CLINICAL HISTORY: 83 years-old Male presenting with multilobar pneumonia. TECHNIQUE: Multidetector CT imaging of the chest was performed after the administration of intravenou s contrast. IV contrast: 93 mL of Optiray 320. One or more dose lowering techniques were used consist ent with the principles of ALARA (as low as reasonably achievable), including automatic exposure cont rol, mA or kV adjustment to individual patient size, and/or use of iterative reconstruction. COMPARISON: Chest x-ray performed earlier today. CT DOSE (mGy.cm): The estimated cumulative dose is 457.15 mGy.cm. FINDINGS: Tobacco Cloth Reclaimer topogram: Median sternotomy wires. Soft tissues: Normal thyroid and thoracic inlet. Prominent subcarinal lymph node conglomerate. Small bilateral hilar lymph nodes also noted. Several lymph nodes demonstrate calcification in both the med iastinum and j carlos suggesting a history of chronic granulomatous disease. Atherosclerosis of the aorta . Median sternotomy with postsurgical changes of coronary artery bypass grafting. Normal heart size. Coronary artery and aortic valve calcification. Small bilateral pleural effusions, left greater than right. Heterogeneous lesion in the right hepatic lobe measuring nearly 5 cm, indeterminate. Lungs and airways: No pneumothorax. Trace debris noted in the lower trachea. Pulmonary arteries are n ot significantly enlarged relative to adjacent bronchi. No interlobular septal thickening. Extensive peripheral and basilar predominant groundglass and solid consolidation involving the lungs bilaterall y though greater on the left. Masslike consolidation is evident in the left lower lobe. Patchy scatte red ill-defined groundglass opacities also noted. Few nodules are suggested though the multifocal con solidation limits evaluation for pulmonary nodule. Musculoskeletal: Degenerative changes of the spine. Flowing anterior osteophytosis or ossification of the anterior longitudinal ligament consistent with diffuse idiopathic skeletal hyperostosis. IMPRESSION: 1. Multifocal bilateral peripheral and dependent predominant groundglass and solid consolidation. So me regions of solid consolidation or masslike most notably in the left lower lobe. The appearance is favored to represent multifocal pneumonia. Follow-up is necessary to ensure the absence of underlying neoplasm. 2. Small bilateral parapneumonic effusions, left greater than right. 3. Suspected reactive mediastinal and hilar lymphadenopathy. 4. Evidence of old granulomatous disease. 5. Postsurgical changes of CABG. Electronically signed by: Raul Martin M.D. 06/08/2019 8:10 AM
--- NOTE | 2019-06-08 09:57 | History & Physical Report ---
Date of Service June 08, 2019 Assessment & Plan (1) Cough: 83-year-old male was admitted on 08 June 2019 for cough. Cough, pulmonary opacities, parapneumonic effusion, lymphadenopathy: Primarily cough for the past two weeks. Not much production. No overt chest pain. Questionable subjective fever, some decreased activity, but still able to do most ADLs. Extensive previous smoking history (but no formal COPD diagnosis) and current liver mass puts malignancy higher on the differential. Not completely convinced symptoms all due to bacterial pneumonia. - In ED, afebrile, not tachycardic or tachypneic, rather good blood pressure, with SpO2 96% on room air. WBC 10, influenza negative, BCx sent. BNP 2210. TnI 0.017. EKG is NSR 74 with normal intervals and a PAC. CT chest with contrast notable for groundglass and solid consolidation suggestive of multifocal pneumonia but also small bilateral parapneumonic effusions, old granulomatous disease, and mediastinal/hilar lymphadenopathy. Cancer is not excluded. - In ED, treated with albuterol, Zosyn, Rocephin, and azithromycin. - Will continue on Rocephin and azithromycin for inpatient treatment of CAP. Check a procalcitonin and sputum culture (if possible). Check cardiac echo (due to elevated BNP). Start prednisone 40 mg daily and albuterol nebs prn. Hepatic mass: 5 cm hepatic mass seen on CT chest. Previous outpatient notes mention report of liver lesion in 2017 with patient's decision to only check LFTs and not ultrasound. Admit LFTs notable only for AST 67. - Discussed the above with patient and family. He does not wish to have this liver mass evaluated. Hypoalbuminemia: Admit albumin 2.5. BMI 26. Decreased appetite over past couple of weeks. - Will give boost shakes. Ongoing medical issues: - CAD, history CABG x3 (1999): Continue home aspirin, hydrochlorothiazide, metoprolol, simvastatin. - Diabetes type 2: Mar 2019 HbA1c was 7.3. Not on any home meds for this. Place on insulin sliding scale as inpatient. - Vitamin B12 deficiency: Continue home vitamin 12 supplementation. - Osteoporosis: Continue home vitamin D. Code status: DNR/DNI (confirmed with patient and family at bedside). Diet: Regular. DVT prophy: Lovenox. PT/OT: Ordered. Disbo: Admit to [facility]. (2) Opacity of lung on imaging study: (3) Liver mass: (4) Hypoalbuminemia: (5) CAD (coronary artery disease): (6) Diabetes mellitus type 2, uncontrolled: (7) Vitamin B12 deficiency: (8) Osteoporosis: History of Present Illness Primary Care Provider: Karina Campbell MD 83-year-old male presents with his family requesting evaluation of cough and some mild difficulty breathing. Notes the same over the past two weeks. No known provocation or sick contacts at that time. Questionable subjective fevers and a single episode of diaphoresis during this time. Denies overt chest pain, though ongoing cough is irritating. Has the feeling as if there is some phlegm he cannot quite cough up. Tried some Gely-Linden and Coricidin HBP. Notes a roughly [id number] smoking history but quit in 1988. Otherwise, denies known underlying lung disease. No other acute patient concerns. - On review of systems, patient denies focal pain elsewhere but does say that he has had a decreased appetite and more generalized fatigue over the past 2 weeks. He does not know of any overt recent weight loss. - Of note, on discussion of some of his imaging findings to include his liver mass, patient and family say they know about this. Patient says that he knows this may be cancer but he is okay with that. He says that he is ready to but does not want to do so now. He does not want to get further evaluation of this liver mass. He says right now his goal is to improve his breathing such that he can go home. - Past medical history includes pulmonary emphysema, urinary incontinence, diabetes type 2, osteoarthritis, vitamin B12 deficiency, coronary artery disease, GERD, external hemorrhoids, basal cell cancer, hematuria, previous report of a liver lesion on CT. - Past surgical history includes AAA repair (2011), CABG x 3 vessels (1999), partial medial meniscectomy, rotator cuff repair. - Social history includes quitting smoking in 1988. Denies alcohol use. Lives at home with and family nearby. Allergies Allergy/AdvReac Type Severity Reaction Status Date / Time No Known Allergies Allergy Unverified 06/08/19 06:30 Home Medications Home Medications Medication Instructions Recorded Confirmed Type hydrochlorothiazide 12.5 mg tablet 12.5 mg PO DAILY #30 tab 01/23/19 06/08/19 Rx metoprolol tartrate 50 mg tablet 50 mg PO BID #60 tab 02/09/19 06/08/19 Rx blood sugar diagnostic #50 ea 02/16/19 03/28/19 Rx aspirin 81 mg tablet,delayed 81 mg PO BID #30 tab 03/26/19 06/08/19 History release cyanocobalamin (vitamin B-12) 1,000 mcg PO DAILY #100 tab 03/26/19 06/08/19 History 1,000 mcg tablet simvastatin 20 mg tablet 20 mg PO QPM 03/26/19 06/08/19 History nitroglycerin 0.4 mg sublingual 0.4 mg SL ONCE PRN #30 tab 03/28/19 06/08/19 Rx tablet cholecalciferol (vitamin D3) 2,000 unit PO DAILY 06/08/19 06/08/19 History [Vitamin D3] jololqgd-qsr-VG-lycopen-lutein 1 tab PO DAILY 06/08/19 06/08/19 History [Centrum Silver] omega 7-inq-jdg-fish oil [Fish Oil] 1 cap PO DAILY 06/08/19 06/08/19 History pyridoxine (vitamin B6) [Vitamin 100 mg PO DAILY 06/08/19 06/08/19 History B-6] Past Med/Surg History Medical History CVA (cerebral vascular accident) (Acute) Diabetes mellitus type 2, uncontrolled (Acute) Gait disturbance (Acute) Generalized osteoarthritis of multiple sites (Acute) History of elevated PSA (Acute) Hyperlipidemia (Acute) Hypertension (Acute) Impaired sensation (Acute) Liver lesion (Acute) Low back pain (Acute) Pulmonary emphysema (Acute) Seborrheic keratosis (Acute) Skin lesion of face (Acute) Urinary incontinence (Acute) Vitamin B12 deficiency (Acute) Surgical History S/P aortic aneurysm repair S/P arthroscopic partial medial meniscectomy S/P arthroscopy of knee S/P CABG x 3 S/P rotator cuff repair Status post AAA (abdominal aortic aneurysm) repair (Acute) Family History Brother Bowel cancer Non Hodgkin's lymphoma Mother Cardiac cancer Diabetes Uterine cancer Father Gallbladder cancer Social History Preferred Language: [place] Communication Ability: Effective Visual Impairment: No Limitations Hearing Ability: Normal Lunchroom Monitor Required: No Beliefs That Will Affect Care: None marital status: Current Living Situation: Spouse current occupational status: retired Other Information That Helps Us Care for You: No Feels Safe at Home: Yes Safety Concerns: Feels Safe At This Time Smoking Status: Former smoker Hx Alcohol Use: No Hx Substance Use: No Seatbelt Use: always Review of Systems Review of Systems: Constitutional: Questionable fever. Denies chills. Positive generalized fatigue. Eyes: Denies any visual loss or diplopia ENT: Denies any ear/nose/throat pain or difficulty speaking or swallowing Respiratory: Positive cough. Questionable dyspnea. No hemoptysis. Cardiovascular: Denies any chest pain or feeling of edema Gastrointestinal: Denies any abdominal pain, nausea/vomiting/diarrhea Musculoskeletal: Denies any acute extremity pains, myalgias, or focal weakness Skin: Denies any known acute rashes or lesions Neuro: Denies any headache, acute focal weakness or numbness, or difficulties with speech or swallow. Physical Exam Physical Exam: GENERAL: Awake, alert, well-appearing, in no acute distress. HENT: Normocephalic, atraumatic. Oropharynx unremarkable. EYES: Normal conjunctiva. Sclera non-icteric. NECK: Inspection normal. Supple and full ROM. No nuchal rigidity. CARDIAC: +S1S2 RRR, no murmurs. RESPIRATORY: Clear to auscultation. No wheezes or rales. Normal respiratory effort. Ongoing mildly congested cough. On room air. GI: +BS, soft, non-distended. No tenderness to palpation. No rebound or guarding. Questionable firmness in the right upper quadrant. EXTREMITIES: No pedal edema or calf tenderness. Moving all extremities naturally and easily. NEURO: No gross neuro deficits. Results & Data Vital Signs (Past 12 Hours) Vital Signs Temp Pulse Pulse Resp BP BP Pulse Ox 06/08/19 08:46 92 H 24 147/70 H 96 06/08/19 08:24 72 16 97 06/08/19 07:41 68 20 130/74 96 06/08/19 06:25 36.8 C 80 18 143/74 H 96 Laboratory Results 06/08/19 06/08/19 06/08/19 Range/Units 06:46 06:02 06:02 WBC 10.01 (4.8-10.8) K/uL RBC 4.56 L (4.7-6.1) M/uL Hgb 13.8 L (14.0-18.0) g/dL Hct 39.6 L (42-52) % MCV 86.8 (80-100) fL MCH 30.3 (25-34) pg MCHC 34.8 (32-36) g/dL RDW Std Deviation 43.8 (36.4-46.3) fL RDW Coeff of Gabriela 13.9 (11.5-14.5) % Plt Count 256 (130-400) K/uL MPV 10.8 H (7.4-10.4) fL Immature Gran % (Auto) 0.9 % Neut % (Auto) 72.5 % Lymph % (Auto) 17.6 % Denali % (Auto) 7.4 % Eos % (Auto) 1.4 % Baso % (Auto) 0.2 % Immature Gran # (Auto) 0.09 H (0.00-0.02) K/uL Neut # (Auto) 7.26 H (1.4-6.5) K/uL Lymph # (Auto) 1.76 (1.2-3.4) K/uL Denali # (Auto) 0.74 H (0.11-0.59) K/uL Eos # (Auto) 0.14 (0-0.5) K/uL Baso # (Auto) 0.02 (0-0.2) K/uL Sodium 135 L (136-145) mmol/L Potassium 4.0 (3.5-5.1) mmol/L Chloride 101 (98-107) mmol/L Carbon Dioxide 26 (21-32) mmol/L Anion Gap 8.0 (3-11) BUN 13 (7-18) mg/dl Creatinine 0.76 (0.6-1.4) mg/dl Est Cr Clr Drug Dosing 81.2 ml/min Est GFR ( Amer) 99.2 Est GFR (Non-Af Amer) 85.6 BUN/Creatinine Ratio 16.7 (10-20) Glucose 150 H (70-99) mg/dl Calcium 8.8 (8.5-10.1) mg/dl Magnesium 2.2 (1.8-2.4) mg/dl Total Bilirubin 0.9 (0.2-1) mg/dl AST 67 H (15-37) U/L ALT 73 (12-78) U/L Alkaline Phosphatase 109 (45-117) U/L Troponin I 0.017 (0-0.045) ng/ml NT-Pro-B Natriuret Pep 2210 H (0-1800) pg/ml Total Protein 7.2 (6.4-8.2) gm/dl Albumin 2.5 L (3.4-5.0) gm/dl Globulin 4.7 H (2.5-4.0) gm/dl Albumin/Globulin Ratio 0.5 L (0.9-2) Lipase 116 (73-393) U/L Influenza Type A (PCR) Neg for Influ A (Neg) Influenza Type B (PCR) Neg for Influ B (Neg) Medications Administered Sodium Chloride (Nss 1000ml) 1,000 mls @ 250 mls/hr IV .Q4H BRAYDEN Stop: 06/08/19 10:47 Last Admin: 06/08/19 07:40 Dose: 250 mls/hr Documented by: [id number] Ioversol (Optiray 320 100ml) 93 ml IV ONCE PRN PRN Reason: Interaction Checking Stop: 06/12/19 07:51 Last Admin: 06/08/19 07:52 Dose: 93 ml Documented by: [id number] Discontinued Medications Albuterol (Duoneb) 3 ml NEB NOW STA Stop: 06/08/19 08:03 Last Admin: 06/08/19 08:22 Dose: 3 ml Documented by: [id number] Ceftriaxone Sodium (Rocephin) 2,000 mg in 70 mls @ 140 mls/hr IV NOW STA Stop: 06/08/19 08:11 Last Infusion: 06/08/19 09:28 Dose: 0 mls/hr Documented by: [id number] Admin: 06/08/19 08:42 Dose: 140 mls/hr Documented by: [id number] Piperacillin Sod/Tazobactam Sod (Zosyn) 4.5 gm in 120 mls @ 240 mls/hr IV NOW ONE Stop: 06/08/19 08:37 Last Admin: 06/08/19 09:29 Dose: 240 mls/hr Documented by: [id number] Code Status & VTE Plan Code Status DNR/DNI. VTE Prophylaxis Plan VTE Prophylaxis will be ordered: Yes Supervising Physician Co-Signing Physician Notes I supervised Salvatore Lacy MD on this patient's care. I examined the patient today independently of him. I discussed the plan of care with him with the plan being as written in his note except for any following changes/exceptions: None. Two week cough. Minimal production. No fevers/chills per patient. Weaker now. Wants to go home because he does not want any treatment. Resident Activity Tracking Resident Involvement: Resident Care Provided Care Provided: Adult Hospital Medicine
[2019-06-08] MEDS ORDERED: ONDANSETRON INJ 2 MG/ML 2 ML VIAL IV PRN (11:49)
[2019-06-08] MEDS ORDERED: GLUCOSE 40% GEL 15 GM TUBE PO PRN (11:49)
[2019-06-08] MEDS ORDERED: CARBOHYDRATES FOR HYPOGLYCEMIA PO PRN (11:49)
[2019-06-08] MEDS ORDERED: GLUCAGON FOR INJ 1 MG VIAL SQ PRN (11:49)
[2019-06-08] MEDS ORDERED: DEXTROSE 50% 50 ML SYRINGE IV PRN (11:49)
[2019-06-08] MEDS ORDERED: NITROGLYCERIN SL 0.4 MG/TAB TAB SL PRN (11:49)
[2019-06-08] MEDS ORDERED: GLUCOSE 10 TABS/TUBE PO PRN (11:49)
[2019-06-08] MEDS: ALBUT/IPRATROP 3MG/0.5MG NEB 3 ML VIAL NEB SCH ×3 (13:33→19:58)
[2019-06-08] MEDS: predniSONE 20 MG TAB PO SCH (13:45)
[2019-06-08] MEDS: INSULIN ASPART 100 UNITS/ML 3 ML PEN SC SCH ×3 (13:46→20:13)
[2019-06-08] MEDS: ENOXAPARIN INJ 40 MG/0.4 ML SYR SQ SCH (13:46)
--- NOTE | 2019-06-08 16:35 | Billing Data ---
Date of Service June 08, 2019 Coding Level of Care Code 13712 Initial Inpt Care Lvl 3
[2019-06-08] MEDS: ASPIRIN 81 MG ECTAB PO SCH (20:08)
[2019-06-08] MEDS: METOPROLOL TARTRATE 50 MG TAB PO SCH (20:09)
[2019-06-08] MEDS ORDERED: SIMVASTATIN 20 MG TAB PO SCH (21:00)
[2019-06-09] MEDS: ALBUT/IPRATROP 3MG/0.5MG NEB 3 ML VIAL NEB SCH ×3 (07:35→15:50)
[2019-06-09 08:02] LABS: Basophils # (auto) 0.01 K/uL (0-0.2); Basophils % (auto) 0.1 %; Eosinophils # (auto) 0.03 K/uL (0-0.5); Eosinophils % (auto) 0.3 %; Hematocrit (blood only) 35.6 % (42-52); Hemoglobin 12.1 g/dL (14.0-18.0); Immature Granulocytes # (auto) 0.05 K/uL (0.00-0.02); Immature Granulocytes % (auto) 0.5 %; Lymphocytes # (auto) 1.67 K/uL (1.2-3.4); Lymphocytes % (auto) 17.4 %; Mean Corpuscular Hemoglobin 29.3 pg (25-34); Mean Corpuscular Volume 86.2 fL (80-100); Mean Platelet Volume 10.2 fL (7.4-10.4); Monocytes % (auto) 6.3 %; Neutrophils # (auto) 7.22 K/uL (1.4-6.5); Neutrophils % (auto) 75.4 %; Platelet Count 260 K/uL (130-400); RDW Coefficient of Variation 13.8 % (11.5-14.5); RDW Standard Deviation 43.6 fL (36.4-46.3); Red Blood Count 4.13 M/uL (4.7-6.1); White Blood Count 9.58 K/uL (4.8-10.8)
[2019-06-09 08:40] LABS: Albumin Level 2.3 gm/dl (3.4-5.0); BUN Creatinine Ratio 16.2 (10-20); Calcium 8.9 mg/dl (8.5-10.1); Creatinine Clr Calc Pharmacy 94.9 ml/min; Est GFR (African American) 105.7; Est GFR (Non-African American) 91.2
[2019-06-09 08:42] LABS: Albumin Globulin Ratio 0.5 (0.9-2); Bilirubin,Total 0.5 mg/dl (0.2-1); Globulin 4.2 gm/dl (2.5-4.0); Total Protein 6.5 gm/dl (6.4-8.2)
[2019-06-09] MEDS ORDERED: cefTRIAXone SODIUM 2,000 MG in DEXTROSE 5% 50 ML IV SCH (09:00)
[2019-06-09] MEDS ORDERED: CHOLECALCIFEROL 1,000 UNITS TAB PO SCH (09:00)
[2019-06-09] MEDS ORDERED: AZITHROMYCIN 250 MG TAB PO SCH (09:00)
[2019-06-09] MEDS ORDERED: hydroCHLOROthiazide 25 MG TAB PO SCH (09:00)
[2019-06-09] MEDS ORDERED: CYANOCOBALAMIN 500 MCG TABLET (VITAMIN B-12) PO SCH (09:00)
[2019-06-09] MEDS ORDERED: PYRIDOXINE HCL 50 MG TAB PO SCH (09:00)
[2019-06-09] MEDS: METOPROLOL TARTRATE 50 MG TAB PO SCH (09:20)
[2019-06-09] MEDS: ASPIRIN 81 MG ECTAB PO SCH (09:20)
[2019-06-09] MEDS: INSULIN ASPART 100 UNITS/ML 3 ML PEN SC SCH ×2 (09:52→12:38)
[2019-06-09] MEDS: predniSONE 20 MG TAB PO SCH (12:33)
[2019-06-09] MEDS: ENOXAPARIN INJ 40 MG/0.4 ML SYR SQ SCH (13:31)
--- NOTE | 2019-06-09 17:13 | Discharge Summary ---
Date of Service June 09, 2019 Admission HPI Per Admitting Provider 83-year-old male presents with his family requesting evaluation of cough and some mild difficulty breathing. Notes the same over the past two weeks. No known provocation or sick contacts at that time. Questionable subjective fevers and a single episode of diaphoresis during this time. Denies overt chest pain, though ongoing cough is irritating. Has the feeling as if there is some phlegm he cannot quite cough up. Tried some Gely-Hickman and Coricidin HBP. Notes a roughly [id number] smoking history but quit in 1988. Otherwise, denies known underlying lung disease. No other acute patient concerns. - On review of systems, patient denies focal pain elsewhere but does say that he has had a decreased appetite and more generalized fatigue over the past 2 weeks. He does not know of any overt recent weight loss. - Of note, on discussion of some of his imaging findings to include his liver mass, patient and family say they know about this. Patient says that he knows this may be cancer but he is okay with that. He says that he is ready to but does not want to do so now. He does not want to get further evaluation of this liver mass. He says right now his goal is to improve his breathing such that he can go home. - Past medical history includes pulmonary emphysema, urinary incontinence, diabetes type 2, osteoarthritis, vitamin B12 deficiency, coronary artery disease, GERD, external hemorrhoids, basal cell cancer, hematuria, previous report of a liver lesion on CT. - Past surgical history includes AAA repair (2011), CABG x 3 vessels (1999), partial medial meniscectomy, rotator cuff repair. - Social history includes quitting smoking in 1988. Denies alcohol use. Lives at home with and family nearby. Principal Diagnosis Multifocal pneumonia with concern for underlying cancer Discharge Exam Constitutional WD/WN, vitals as above Eyes EOM intact bilaterally; no conjunctival abnormality ENMT external ear and nose normal, oropharynx normal Neck trachea midline, no thyromegaly normal visual inspection Respiratory + cough; no respiratory distress and no labored breathing Auscultation: lungs clear to auscultation bilaterally Cardiovascular RRR, no murmur, no edema Gastrointestinal (Abdomen) Inspection/Auscultation: abdomen normal to inspection; abdomen not distended Musculoskeletal no cyanosis or clubbing, extremities motor strength 5/5 Skin no rashes, warm and dry Neurologic moves all extremities and awake Psychiatric Orientation: alert, oriented to person and cooperative Discharge Data Allergies Allergy/AdvReac Type Severity Reaction Status Date / Time No Known Allergies Allergy Unverified 06/08/19 06:30 Consultations 06/08/19 09:23 ED Decision to Admit Stat Ordered Studies 06/08/19 07:15 CT chest w con Stat Hospital Course (1) Multifocal pneumonia: CT chest on 06/08 showed multifocal pneumonia. He had essentially no shortness of breath, just cough and generalized weakness. Concern for underlying malignancy; however, the patient declined any further investigation as he reports he does not want treatment in any event. No pulmonology consult as he declined. - On ceftriaxone and azithromycin which he reported made him feel a lot better within 24 hours. - Will need 3 days of azithromycin and 5 days of cefdinir to finish his course. He wanted to be discharged. (2) Liver mass: 5 cm hepatic mass seen on CT chest. Previous outpatient notes mention report of liver lesion in 2017 with patient's decision to only check LFTs and not ultrasound. Admit LFTs notable only for AST 67. - Discussed the above with patient and family. He does not wish to have this liver mass evaluated. (3) CAD (coronary artery disease): CAD, history CABG x3 (1999): Continue home aspirin, hydrochlorothiazide, metoprolol, simvastatin. (4) Diabetes mellitus type 2, uncontrolled: - Diabetes type 2: Mar 2019 HbA1c was 7.3. Not on any home meds for this. Place on insulin sliding scale as inpatient. (5) Vitamin B12 deficiency: Vitamin B12 deficiency: Continue home vitamin 12 supplementation. (6) Osteoporosis: - Osteoporosis: Continue home vitamin D. Total Time Total Time Spent Total Time Spent (In Minutes): 45 Discharge Plan Discharge Items Patient Disposition: Transfer Inpatient Rehab Fac Reason For Visit: COUGH, HEPATIC MASS Discharge Diagnosis: Pneumonia with a possible underlying malignancy Activity: Resume your previous activity Non-emergency contact: Primary Care Provider Call non-emergency contact if: your symptoms worsen and your temperature is above 101 Follow-up/Referrals: Karina Campbell MD [Primary Care Provider] - Diet: Regular Addtl Attending Provider Instructions: Mr. Bragg was admitted for pneumonia. The CT scan of the chest shows very solid consolidations vs. masses. There is some concern this is an underlying cancer; however, he reports he is not interested in treatment at all, so he did not want to see our pulmonology doctors. The current plan is to treat with antibiotics and get a repeat CXR or CT scan of the chest in 4-6 weeks to see if there is any residual mass. Again, this is mostly investigative in nature as he does not want any treatment. However, if it is thought he does have lung cancer, he could probably qualify for hospice. However, he is doing better on abx at this time. Finish azithromycin 500 mg PO daily on 06/11 and cefdinir 300 mg PO BID on 06/12. Pending Studies at Discharge: No Stand-Alone Forms: My [facility] Skilled Items Patient informed of condition?: No DNR: Yes Discharge Level of Care: Acute rehab Communicable Disease: No Discharge Prognosis: Improving Lines: None Urinary Catheter: No Medications and DC Order Prescriptions: New ipratropium-albuterol 0.5 mg-3 mg(2.5 mg base)/3 mL Solution For Nebulization 3 ml NEB QIDR Qty: 1 RF: 0 azithromycin [Zithromax] 250 mg Tablet 500 mg PO QAM Qty: 1 RF: 0 cefdinir 300 mg capsule 300 mg PO BID Qty: 1 RF: 0 Continued hydrochlorothiazide 12.5 mg tablet 12.5 mg PO DAILY Qty: 30 RF: 5 metoprolol tartrate 50 mg tablet 50 mg PO BID Qty: 60 RF: 5 (DME) FreeStyle Lite Strips strip See Dose Instructions .ROUTE .MEDSUPPLY Qty: 50 RF: 5 simvastatin [Zocor] 20 mg tablet 20 mg PO QPM RF: 0 nitroglycerin 0.4 mg tablet, sublingual 0.4 mg SL ONCE PRN (Reason: chest pain) Qty: 30 RF: 0 aspirin 81 mg tablet,delayed release (DR/EC) 81 mg PO BID Qty: 30 RF: 0 cyanocobalamin (vitamin B-12) 1,000 mcg tablet 1,000 mcg PO DAILY Qty: 100 RF: 0 Centrum Silver 0.4-300-250 mg-mcg-mcg Tablet 1 tab PO DAILY RF: 0 omega 2-qfr-njp-fish oil [Fish Oil] 1,000 mg (120 mg-180 mg) Capsule 1 cap PO DAILY RF: 0 cholecalciferol (vitamin D3) [Vitamin D3] 2,000 unit Tablet 2,000 unit PO DAILY RF: 0 pyridoxine (vitamin B6) [Vitamin B-6] 100 mg Tablet 100 mg PO DAILY RF: 0 Discharge Orders: Discharge Order (Routine); Ordered 06/09/19 Ordered By: Eliazar Cardenas/Other Patient Handouts: Pneumonia Admission Data Admit Date/Time: 06/08/19 09:52 Attending Provider: Eliazar Middleton Admit Provider: Salvatore Layc Primary Care Provider: Karina Campbell V. Other Providers: Eliazar Middleton ; [facility] Other Interventions: Discharge Summary Assessment (RN) Last Done: 06/09/19 13:35
== END 2019-06-09 17:25 | DRG 195 ==
LOC: ED 06:17 → 3N 09:52

== ENCOUNTER 2020-09-13 14:26 | Inpatient (IN) ==
--- NOTE | 2020-09-13 14:45 | Emergency Department Note ---
Impression & Plan Pulmonary embolism, bilateral, Liver mass, Metastatic disease, Adult failure to thrive ED Provider Note NAME: CLAUDIA COOMBS AGE: 85 SEX: M ARRIVES VIA: Walk-In INFORMANT: Patient, ED PROVIDER(S): Remy Shaikh MD CHIEF COMPLAINT: weakness PLAN: Disposition: Admit MEDICAL DECISION MAKING: The patient is a pleasant 85-year-old gentleman with a past medical history of CAD, history of CABG, PVD, AAA repair in January 2012, GERD, generalized osteoarthritis, type 2 diabetes, history of confirmed basal cell carcinoma of the scalp however with no further follow-up per patient's wishes, history of liver lesion diagnosed in 2019 which the patient has not wanted follow-up for, history of C. difficile colitis who presents to the emergency department with worsening generalized weakness, hoarse voice and difficulty swallowing over the course of months with weight loss due to decreased appetite and development of lower extremity swelling over the past several weeks, seen by his PCP today with concern for worsening failure to thrive and need for diagnostic testing and possible admission. The patient and at the bedside denies any recent fevers, chills, cough, congestion, diarrhea, urinary symptoms. They deny any known COVID-19 exposures. They report they would be in agreement with an admission for additional testing and treatment. On arrival the patient is fatigued appearing no acute distress, afebrile stable vital signs. He is notably cachectic with 2+ bilateral lower extremity pitting edema. He has a 2 cm irregular raised and discolored scalp lesion corresponding to history of basal cell carcinoma. EKG without overt acute ischemia. Chest x-ray with right lower lung opacities. Nodularity suspicious with metastatic disease seen. WBC 7.4, nonspecific. H/H 18.9/55.3 consistent with the patient's clinically dry appearance. Platelets within normal limits. INR 1.4 possibly related to failure to thrive. Chemistry without metabolic acidosis. Electrolytes without significant abnormalities. Total bilirubin 2.1 with direct bilirubin 0.8 and AST 160 consistent with the patient's hepatic metastatic disease. Urinalysis without convincing evidence of infection. Covid-19 RNA, ANDREINA was negative. CT of the head and soft tissue neck negative for acute process. CT of the chest and abdomen pelvis to demonstrate evidence of metastatic disease including multiple bilateral pulmonary nodules as well as an enlarging 20 cm hepatic mass as well as multiple pulmonary filling defects consistent with of acute pulmonary embolism. Treatment initiated with Lovenox. Findings were reviewed with the patient and his at the bedside and they are agreeable with plan for admission for further evaluation and management and discussion of goals of care. Additional CT findings suggestive of pneumonia however given no leukocytosis or fevers will defer treatment for possible pneumonia to admitting team. Case was d/w Dr. Muller, [facility] hospitalist who will evaluate the patient for admission. Triage Nursing notes reviewed and agree them. Prior medical records reviewed Vital Signs: reviewed and remarkable for no significant abnormalities Differential diagnosis: Infection, dehydration, metabolic abnormality, hypo/hyperglycemia, electrolyte disturbance, anemia, hypoxia, cardiac sources, intracerebral event, toxicologic, neurologic, as well as other pathologies. ER treatment provided: See below. Diagnostics interpreted by me: ECG: Normal sinus rhythm, 60 bpm, no ectopy, no overt ST elevation or depression, QTC 418, QRS 88. Cardiac Monitoring: An order for continuous cardiac monitoring was placed and demonstrated Normal sinus rhythm, 60 bpm, no ectopy. Laboratory studies: See below Imaging studies: XR knee RT 1 or 2V routine CLINICAL HISTORY: Right knee pain and swelling COMPARISON: None. DISCUSSION: No acute fractures or dislocations are visualized. There are advanced tricompartment osteoarthritic changes. There are vascular calcifications present. There is a trace joint effusion. IMPRESSION: 1. Advanced tricompartment osteoarthritic change 2. No acute fractures ACT 112: Negative or not required by law. XR chest 1V portable CLINICAL HISTORY: Atypical chest pain COMPARISON STUDY: 06/08/2019 FINDINGS: The heart is normal in size. There are postsurgical changes of a midline sternotomy. There is interstitial thickening. There are right basilar airspace opacity suspicious for a pneumonia. There is been resolution of the left lung airspace opacities and partial clearing of the peripheral right lower lung zone airspace opacities.[There is underlying parenchymal nodularity raising the possibility of metastatic disease. IMPRESSION: 1. Right lower lung zone airspace opacities suspicious for pneumonia 2. Subtle lung nodularity, possibly representing metastatic disease ACT 112: Negative or not required by law. CT head/brain wo/w con CT DOSE: TECHNIQUE: Noncontrast images were obtained through the brain in the axial plane. The sequence was repeated following administration of 93 Optiray 320. A dose lowering technique was utilized adhering to the principles of ALARA. HISTORY: ?metastatic disease, weight loss, weak, edema, known hepatic mass COMPARISON: None. FINDINGS: No intra or extra-axial mass lesions are visualized. There is no CT evidence of acute cortical infarction. There is no evidence of midline shift. There is no acute hemorrhage. No calvarial fractures are visualized. There are moderate white matter hypodensities likely on a small vessel basis. There is no evidence of pathologic ventricular dilatation. There is no evidence of acute sinusitis Postcontrast images reveal no pathologically enhancing masses. IMPRESSION: 1. No acute intracranial findings. No CT evidence of intracranial metastasis. ACT 112: Negative or not required by law. -- CT soft tissue neck w con HISTORY: ?metastatic disease, hoarseness, dysphagia TECHNIQUE: Multiaxial CT images of the neck were performed following the intravenous administration of 93 cc of Optiray 320. COMPARISON STUDY: None. FINDINGS: Please refer the same day head CT for further evaluation of the brain. The pterygopalatine fossa are well-maintained. The parotid and submandibular glands are symmetric. Trace fluid within the paranasal sinuses. Otherwise, the major mucosal airways services are intact. No supraclavicular or cervical lymphadenopathy. Prevertebral soft tissues and the epiglottis are normal in thickness. The lung apices are clear. Mild emphysema. No suspicious lytic or blastic osseous lesions. 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 Moderate calcified plaque within the bilateral carotid bifurcations. No significant stenosis within the carotid arteries. The proximal left vertebral artery is not well visualized which could be due to the severe hypoplasia. The right vertebral and carotid arteries show no significant stenosis. IMPRESSION: 1. No evidence for metastatic disease within the neck. 2. Trace fluid within the paranasal sinuses. 3. Severely hypoplastic left vertebral artery. The proximal portion of the left vertebral is not well visualized which could be due to the severe hypoplasia. Age-indeterminate occlusion cannot be excluded. 4. No cervical lymphadenopathy. ACT 112: Negative or not required by law. Electronically signed by: Carlos Feng M.D. 09/13/2020 4:20 PM ABDOMEN AND PELVIS CT WITH IV CONTRAST CT DOSE: HISTORY: ?metastatic disease, weight loss, weak, edema TECHNIQUE: Multiaxial CT images of the abdomen and pelvis were performed following the use of intravenous contrast. A dose lowering technique was utilized adhering to the principles of ALARA. COMPARISON STUDY: Abdomen and pelvis CT 08/27/2016. Chest CT 06/08/2019. FINDINGS: Patchy airspace opacities within the right lung base and multiple bilateral pulmonary nodules within the lung bases. Dominant nodule within the left lower lobe measures 1.2 cm. There is a large hypervascular and heterogeneous mass involving the majority of the liver. This measures approximately 21 cm in length. The spleen, adrenal glands, pancreas, gallbladder, and kidneys are unremarkable. Prominent varicosities within the upper abdomen are noted. The main portal vein appears patent. Incomplete filling of the distal superior mesenteric vein may be due to mixing of contrast. Trace perihepatic ascites. No pneumoperitoneum. No pneumatosis. No suspicious lytic or blastic osseous lesions. Poststernotomy changes. Status post aortobiiliac stent graft repair of abdominal aortic aneurysm. The aneurysm sac measures up to 3.5 cm in diameter. This is similar to the prior study. The bladder is unremarkable. Colonic diverticulosis. No evidence for acute diverticulitis. No bowel wall thickening or obstruction. Normal appendix. Mild to moderate body wall edema. IMPRESSION: 1. There is a 21 cm heterogeneous mass occupying the majority of the liver with trace perihepatic ascites. This is consistent with a malignancy and may represent hepatocellular carcinoma. 2. Multiple pulmonary nodules consistent with metastatic disease. 3. Patchy airspace opacities within the right lung base consistent with a pneumonia. 4. The main portal vein appears patent. Incomplete filling within the distal superior mesenteric vein which may be due to mixing of contrast rather than thrombus. ACT 112: Negative or not required by law. Electronically signed by: Carlos Feng M.D. 09/13/2020 4:35 PM - CT OF THE CHEST WITH IV CONTRAST CLINICAL HISTORY: ?metastatic disease, weight loss, weak, edema KNOWN HEPATIC MASS. COMPARISON STUDY: June 08, 2019 TECHNIQUE: Following the IV administration of 93 mL of Optiray-320, CT of the thorax was performed from the thoracic inlet to the lung bases. Images are reviewed in the axial, sagittal, and coronal planes. IV contrast was administered without complication. A dose lowering technique was utilized adhering to the principles of ALARA. CT DOSE: FINDINGS: Thyroid: Imaged portions of the thyroid gland are normal in appearance. Thoracic aorta: The thoracic aorta is normal in course and caliber, noting standard 3-vessel arch anatomy. No aneurysm or dissection is seen. Pulmonary vasculature: There are pulmonary filling defects indicative of acute pulmonary embolism. HEART: The heart is normal in size. There are coronary artery calcifications. There is no pericardial effusion. There are postsurgical changes of a midline sternotomy. Lungs and pleural spaces: There are multiple bilateral pulmonary nodules, the largest of which is located within the left lower lobe measuring 12 mm. The findings are highly suspicious for metastatic disease. There are peripheral airspace opacities within the left upper lobe. There are right lower lobe and right middle lobe airspace opacities, likely representing a pneumonia. There is increased right hilar soft tissue with secondary bronchial narrowing. This could be infectious or neoplastic. Mediastinum: There are mildly enlarged mediastinal lymph nodes. An index subcarinal lymph node measures 17 mm. Kellen: There is increased soft tissue within the right hilar region, neoplastic versus infectious/inflammatory Axilla: There is no evidence of pathologic axillary lymphadenopathy Upper abdomen: There is a 20 cm hypervascular hepatic mass Skeletal structures: There are no lytic or blastic osseous lesions. IMPRESSION: 1. Pulmonary filling defects indicative of acute pulmonary embolism 2. Multiple bilateral pulmonary nodules. As highly suspicious for metastatic disease 3. Pulmonary airspace opacities within the left upper lobe right upper lobe and right middle lobe, likely representing a pneumonia 4. Right hilar soft tissue with secondary bronchial wall narrowing, this could be infectious or neoplastic 5. Mild mediastinal lymphadenopathy 6. Enlarging 20 cm hypervascular hepatic mass Consultation(s): Case was d/w Dr. Muller, [facility] hospitalist who will evaluate the patient for admission. HPI: The patient is a pleasant 85-year-old gentleman with a past medical history of CAD, history of CABG, PVD, AAA repair in January 2012, GERD, generalized osteoarthritis, type 2 diabetes, history of confirmed basal cell carcinoma of the scalp however with no further follow-up per patient's wishes, history of liver lesion diagnosed in 2019 which the patient has not wanted follow-up for, history of C. difficile colitis who presents to the emergency department with worsening generalized weakness, hoarse voice and difficulty swallowing over the course of months with weight loss due to decreased appetite and development of lower extremity swelling over the past several weeks, seen by his PCP today with concern for worsening failure to thrive and need for diagnostic testing and p ossible admission. The patient and at the bedside denies any recent fevers, chills, cough, congestion, diarrhea, urinary symptoms. They deny any known COVID-19 exposures. They report they would be in agreement with an admission for additional testing and treatment. ROS: See above HPI for pertinent positives & negatives. A total of 10 systems reviewed and were otherwise negative. PAST MEDICAL HISTORY:See Below PAST SURGICAL HISTORY:See Below FAMILY HISTORY:See Below SOCIAL HISTORY:See Below HOME MEDICATIONS:See Below ALLERGIES:See Below VITALS:See Below PHYSICAL EXAMINATION: GENERAL: Awake, alert, cachectic, fatigued/ill-appearing, in no distress, BMI 19.8. HENT: Normocephalic, atraumatic. Oropharynx with dry-cracked mucous membranes and otherwise unremarkable. Hoarseness in voice. No tongue elevation or trismus. EYES: Normal conjunctiva. Sclera non-icteric. NECK: Supple. No nuchal rigidity. FROM. No JVD. RESPIRATORY: Diminished at the bases and otherwise clear to auscultation. CARDIAC: Regular rate, normal rhythm. Extremities warm and well perfused. Pulses equal. ABDOMEN: Soft, non-distended. No tenderness to palpation. No rebound or guarding. No masses. RECTAL: Deferred. MUSCULOSKELETAL: Chest examination reveals no tenderness. The back is symmetrical on inspection without obvious abnormality. There is no CVA tenderness to palpation. No joint edema. LOWER EXTREMITIES: Right knee with mild effusion. ROM limited 2/2 pain. 2+ BLE pitting edema. No discoloration. NEURO: Normal sensorium. No sensory or motor deficits noted. SKIN: 2 cm irregular raised and discolored scalp lesion corresponding to history of basal cell carcinoma. No rash or jaundice noted. ED COURSE: Critical Care: I have personally spent greater than 45 minutes of critical care time in the direct management of this patient. This includes bedside care, interpretation of diagnostic studies, and testing, discussion with consultants, patient, and family members, and other required patient management activities. This 45 minutes is in excess of all separately billable procedures. Remy Shaikh MD Past Med/Surg History Medical History CVA (cerebral vascular accident) Diarrhea Dyspnea Gait disturbance Generalized osteoarthritis of multiple sites History of elevated PSA Hyperlipidemia Hypertension Impaired sensation Low back pain Multifocal pneumonia Pulmonary emphysema Seborrheic keratosis Skin lesion of face Urinary incontinence Urinary retention Vitamin B12 deficiency Surgical History S/P aortic aneurysm repair S/P arthroscopic partial medial meniscectomy S/P arthroscopy of knee S/P CABG x 3 S/P rotator cuff repair Status post AAA (abdominal aortic aneurysm) repair 2011 Family History Brother Bowel cancer Non Hodgkin's lymphoma Mother Cardiac cancer Diabetes Uterine cancer Father Gallbladder cancer Denies family history of Prostate cancer Social History Smoking Status: Former smoker Do You Dip or Chew Tobacco: No; Hx Alcohol Use: No Hx Substance Use: No Preferred Language: Yakut Communication Ability: Effective Communication Ability Comment: soft spoken Visual Impairment: No Limitations Hearing Ability: Normal Oyster Bed Worker Required: No Beliefs That Will Affect Care: None marital status: Current Living Situation: Spouse current occupational status: retired Other Information That Helps Us Care for You: No Feels Safe at Home: Yes Safety Concerns: Feels Safe At This Time Seatbelt Use: always Assistive Devices: Denture - Upper, Denture - Lower, Glasses, Walker and Wheelchair Allergies Allergies Allergy/AdvReac Type Severity Reaction Status Date / Time No Known Allergies Allergy Verified 09/13/20 13:29 Home Meds Home Medications Medication Instructions Recorded Confirmed aspirin 81 mg tablet,delayed 81 mg PO BID #30 tab 03/26/19 09/13/20 release cyanocobalamin (vitamin B-12) 1,000 mcg PO DAILY #100 tab 03/26/19 09/13/20 1,000 mcg tablet Centrum Silver 1 tab PO DAILY 06/08/19 09/13/20 cholecalciferol (vitamin D3) 2,000 unit PO DAILY 06/08/19 09/13/20 [Vitamin D3] pyridoxine (vitamin B6) [Vitamin 100 mg PO DAILY 06/08/19 09/13/20 B-6] alfuzosin 10 mg PO QPM 09/13/20 09/13/20 Previous Rx's Medication Instructions Recorded nitroglycerin 0.4 mg sublingual 0.4 mg SL ONCE PRN #30 tab 03/28/19 tablet metoprolol tartrate 50 mg tablet 50 mg PO BID #180 tab 07/10/20 finasteride 5 mg tablet 5 mg PO DAILY #90 tab 08/06/20 Results & Data (ED) Vital Signs Vital Signs - 24 hr 09/13/20 14:29 09/13/20 15:13 09/13/20 15:15 Temperature 36.7 C Temperature Source Temporal Artery Scan Pulse Rate 55 L 62 Pulse Rate from SpO2 Sensor 61 Pulse Rhythm Regular Pulse Strength Normal Respiratory Rate 18 17 Respiratory Effort / Characteristics Non-Labored Spontaneous Respiratory Depth Normal Respiratory Pattern Regular Blood Pressure 152/76 H 133/63 Blood Pressure Mean 101 86 Blood Pressure Position Sitting Pulse Oximetry 96 95 97 Oxygen Delivery Method Room Air Room Air Room Air Sepsis Recent Fever Within 48 Hours No Sepsis New/Unexplained Change in Mental Status N/A Sepsis Action Taken by Nursing No Action Required 09/13/20 15:30 09/13/20 16:18 09/13/20 17:00 Temperature Temperature Source Pulse Rate 63 69 63 Pulse Rate from SpO2 Sensor 63 69 62 Pulse Rhythm Pulse Strength Respiratory Rate 13 12 19 Respiratory Effort / Characteristics Respiratory Depth Respiratory Pattern Blood Pressure 136/66 142/69 H 149/74 H Blood Pressure Mean 89 93 99 Blood Pressure Position Pulse Oximetry 99 96 97 Oxygen Delivery Method Room Air Room Air Room Air Sepsis Recent Fever Within 48 Hours Sepsis New/Unexplained Change in Mental Status Sepsis Action Taken by Nursing 09/13/20 17:30 Temperature Temperature Source Pulse Rate 61 Pulse Rate from SpO2 Sensor 56 L Pulse Rhythm Pulse Strength Respiratory Rate 16 Respiratory Effort / Characteristics Respiratory Depth Respiratory Pattern Blood Pressure 136/60 Blood Pressure Mean 85 Blood Pressure Position Pulse Oximetry 97 Oxygen Delivery Method Room Air Sepsis Recent Fever Within 48 Hours Sepsis New/Unexplained Change in Mental Status Sepsis Action Taken by Nursing Laboratory Data Attestation: I reviewed the patient's lab results. Result diagrams: 09/13/20 15:30 09/13/20 16:30 Lab Results 09/13/20 09/13/20 09/13/20 Range/Units 15:15 15:15 15:30 WBC 7.41 (4.8-10.8) K/uL RBC 7.26 H (4.7-6.1) M/uL Hgb 18.9 H (14.0-18.0) g/dL POC Hgb (14.0-18.0) g/dl Hct 55.3 H (42-52) % POC Hct (42-52) % MCV 76.2 L (80-100) fL MCH 26.0 (25-34) pg MCHC 34.2 (32-36) g/dL RDW Std Deviation 54.2 H (36.4-46.3) fL RDW Coeff of Gabriela 20.7 H (11.5-14.5) % Plt Count 148 (130-400) K/uL Immature Gran % (Auto) 0.3 % Neut % (Auto) 76.5 % Lymph % (Auto) 13.0 % Bosque % (Auto) 9.4 % Eos % (Auto) 0.7 % Baso % (Auto) 0.1 % Neut # (Auto) 5.67 (1.4-6.5) K/uL Lymph # (Auto) 0.96 L (1.2-3.4) K/uL Bosque # (Auto) 0.70 H (0.11-0.59) K/uL Eos # (Auto) 0.05 (0-0.5) K/uL Baso # (Auto) 0.01 (0-0.2) K/uL Immature Gran # (Auto) 0.02 (0.00-0.02) K/uL Anisocytosis Present PT INR APTT (21.0-31.0) Seconds PTT Ratio POC Sodium (135-144) mmol/L Sodium (136-145) mmol/L POC Potassium (3.3-5.0) mmol/L Potassium (3.5-5.1) mmol/L POC Chloride (101-112) mmol/L Chloride (98-107) mmol/L Carbon Dioxide (21-32) mmol/L POC Total CO2 (24-31) mmol/L Anion Gap (3-11) POC Anion Gap (16-25) mmol/L POC BUN (7-18) mg/dl BUN (7-18) mg/dl Creatinine (0.6-1.4) mg/dl POC Creatinine (0.6-1.3) mg/dl Est Cr Clr Drug Dosing ml/min Est GFR ( Amer) Est GFR (Non-Af Amer) BUN/Creatinine Ratio (10-20) Glucose (70-99) mg/dl POC Glucose (other) (70-99) mg/dl Calcium (8.5-10.1) mg/dl POC Ioniz Calcium Jacob (1.12-1.32) mmol/l Phosphorus (2.5-4.9) mg/dl Magnesium (1.8-2.4) mg/dl Total Bilirubin (0.2-1) mg/dl Direct Bilirubin (0-0.2) mg/dl AST (15-37) U/L ALT (12-78) U/L Alkaline Phosphatase (45-117) U/L Total Creatine Kinase (39-308) U/L Troponin I (0-0.045) ng/ml Total Protein (6.4-8.2) gm/dl Albumin (3.4-5.0) gm/dl Globulin (2.5-4.0) gm/dl Albumin/Globulin Ratio (0.9-2) Lipase (73-393) U/L TSH (0.300-4.500) uIu/ml Free T4 (0.8-1.6) ng/dl COVID-19 Eval [facility] SARS-[facility]-2, RNA, NAAT NEGATIVE (NEGATIVE) 09/13/20 09/13/20 09/13/20 Range/Units 15:30 15:30 15:35 WBC (4.8-10.8) K/uL RBC (4.7-6.1) M/uL Hgb (14.0-18.0) g/dL POC Hgb 21.4 H* (14.0-18.0) g/dl Hct (42-52) % POC Hct 63 H* (42-52) % MCV (80-100) fL MCH (25-34) pg MCHC (32-36) g/dL RDW Std Deviation (36.4-46.3) fL RDW Coeff of Gabriela (11.5-14.5) % Plt Count (130-400) K/uL Immature Gran % (Auto) % Neut % (Auto) % Lymph % (Auto) % Bosque % (Auto) % Eos % (Auto) % Baso % (Auto) % Neut # (Auto) (1.4-6.5) K/uL Lymph # (Auto) (1.2-3.4) K/uL Bosque # (Auto) (0.11-0.59) K/uL Eos # (Auto) (0-0.5) K/uL Baso # (Auto) (0-0.2) K/uL Immature Gran # (Auto) (0.00-0.02) K/uL Anisocytosis PT Cancelled INR Cancelled APTT (21.0-31.0) Seconds PTT Ratio POC Sodium 136 (135-144) mmol/L Sodium 135 L (136-145) mmol/L POC Potassium 5.1 H (3.3-5.0) mmol/L Potassium (3.5-5.1) mmol/L POC Chloride 99 L (101-112) mmol/L Chloride 101 (98-107) mmol/L Carbon Dioxide 30 (21-32) mmol/L POC Total CO2 32 H (24-31) mmol/L Anion Gap 4.0 (3-11) POC Anion Gap 11.0 L (16-25) mmol/L POC BUN 24 H (7-18) mg/dl BUN 19 H (7-18) mg/dl Creatinine 0.96 (0.6-1.4) mg/dl POC Creatinine 0.8 (0.6-1.3) mg/dl Est Cr Clr Drug Dosing 53.1 ml/min Est GFR ( Amer) 84.4 Est GFR (Non-Af Amer) 72.8 BUN/Creatinine Ratio 19.4 (10-20) Glucose 124 H (70-99) mg/dl POC Glucose (other) 132 H (70-99) mg/dl Calcium 9.2 (8.5-10.1) mg/dl POC Ioniz Calcium Jacob 1.08 L (1.12-1.32) mmol/l Phosphorus 2.8 (2.5-4.9) mg/dl Magnesium (1.8-2.4) mg/dl Total Bilirubin 2.1 H (0.2-1) mg/dl Direct Bilirubin (0-0.2) mg/dl AST (15-37) U/L ALT 55 (12-78) U/L Alkaline Phosphatase 122 H (45-117) U/L Total Creatine Kinase (39-308) U/L Troponin I < 0.015 (0-0.045) ng/ml Total Protein 6.8 (6.4-8.2) gm/dl Albumin 2.9 L (3.4-5.0) gm/dl Globulin 3.9 (2.5-4.0) gm/dl Albumin/Globulin Ratio 0.7 L (0.9-2) Lipase 57 L (73-393) U/L TSH 4.760 H (0.300-4.500) uIu/ml Free T4 1.05 (0.8-1.6) ng/dl COVID-19 Eval Order SARS-CoV-2, RNA, NAAT (NEGATIVE) 09/13/20 09/13/20 Range/Units 16:30 16:30 WBC (4.8-10.8) K/uL RBC (4.7-6.1) M/uL Hgb (14.0-18.0) g/dL POC Hgb (14.0-18.0) g/dl Hct (42-52) % POC Hct (42-52) % MCV (80-100) fL MCH (25-34) pg MCHC (32-36) g/dL RDW Std Deviation (36.4-46.3) fL RDW Coeff of Gabriela (11.5-14.5) % Plt Count (130-400) K/uL Immature Gran % (Auto) % Neut % (Auto) % Lymph % (Auto) % Bosque % (Auto) % Eos % (Auto) % Baso % (Auto) % Neut # (Auto) (1.4-6.5) K/uL Lymph # (Auto) (1.2-3.4) K/uL Bosque # (Auto) (0.11-0.59) K/uL Eos # (Auto) (0-0.5) K/uL Baso # (Auto) (0-0.2) K/uL Immature Gran # (Auto) (0.00-0.02) K/uL Anisocytosis PT 13.7 H INR 1.4 H APTT 30.2 (21.0-31.0) Seconds PTT Ratio 1.1 POC Sodium (135-144) mmol/L Sodium (136-145) mmol/L POC Potassium (3.3-5.0) mmol/L Potassium 4.1 (3.5-5.1) mmol/L POC Chloride (101-112) mmol/L Chloride (98-107) mmol/L Carbon Dioxide (21-32) mmol/L POC Total CO2 (24-31) mmol/L Anion Gap (3-11) POC Anion Gap (16-25) mmol/L POC BUN (7-18) mg/dl BUN (7-18) mg/dl Creatinine (0.6-1.4) mg/dl POC Creatinine (0.6-1.3) mg/dl Est Cr Clr Drug Dosing ml/min Est GFR ( Amer) Est GFR (Non-Af Amer) BUN/Creatinine Ratio (10-20) Glucose (70-99) mg/dl POC Glucose (other) (70-99) mg/dl Calcium (8.5-10.1) mg/dl POC Ioniz Calcium Jacob (1.12-1.32) mmol/l Phosphorus (2.5-4.9) mg/dl Magnesium 2.2 (1.8-2.4) mg/dl Total Bilirubin (0.2-1) mg/dl Direct Bilirubin 0.8 H (0-0.2) mg/dl AST 160 H (15-37) U/L ALT (12-78) U/L Alkaline Phosphatase (45-117) U/L Total Creatine Kinase 50 (39-308) U/L Troponin I (0-0.045) ng/ml Total Protein (6.4-8.2) gm/dl Albumin (3.4-5.0) gm/dl Globulin (2.5-4.0) gm/dl Albumin/Globulin Ratio (0.9-2) Lipase (73-393) U/L TSH (0.300-4.500) uIu/ml Free T4 (0.8-1.6) ng/dl COVID-19 Eval Order SARS-CoV-2, RNA, NAAT (NEGATIVE) Administered Medications Discontinued Medications Enoxaparin Sodium (Enoxaparin Inj 60 Mg/0.6 Ml Syr) 60 mg SQ NOW STA Stop: 09/13/20 16:49 Last Admin: 09/13/20 16:53 Dose: 60 mg Documented by: [id number] Sodium Chloride (Nss) 500 mls @ 999 mls/hr IV .Q31M ONE Stop: 09/13/20 15:29 Last Infusion: 09/13/20 16:06 Dose: 0 mls/hr Documented by: [id number] Admin: 09/13/20 15:34 Dose: 999 mls/hr Documented by: [id number] Ioversol (Ioversol 100ml) 93 ml IV ONCE ONE Stop: 09/13/20 16:00 Last Admin: 09/13/20 16:01 Dose: 93 ml Documented by: [id number] Discharge Plan Visit Data Chief Complaint: Illness Stated Complaint: DIFFICULTY SWALLOWING ED Provider: Remy Shaikh Discharge Problem: Pulmonary embolism, bilateral, Liver mass, Metastatic disease, Adult failure to thrive Patient Disposition: Admitted As Inpatient Discharge Instructions Interventions: ED Discharge Assessment Last Done: 09/13/20 18:33 Discharge Problem: Metastatic disease Qualifiers: Area of secondary neoplastic involvement: unspecified site Qualified Code(s): C79.9 - Secondary malignant neoplasm of unspecified site
[2020-09-13] MEDS ORDERED: SODIUM CHLORIDE 0.9% 500 ML IV ONE (14:59)
[2020-09-13 15:46] LABS: Hematocrit (blood only) 55.3 % (42-52); Hemoglobin 18.9 g/dL (14.0-18.0); Mean Corpuscular Volume 76.2 fL (80-100); RDW Coefficient of Variation 20.7 % (11.5-14.5); RDW Standard Deviation 54.2 fL (36.4-46.3); Red Blood Count 7.26 M/uL (4.7-6.1); White Blood Count 7.41 K/uL (4.8-10.8)
[2020-09-13 15:54] LABS: iSTAT Creatinine 0.8 mg/dl (0.6-1.3); iSTAT Hemoglobin 21.4 g/dl (14.0-18.0); iSTAT Ionized Calcium 1.08 mmol/l (1.12-1.32); iSTAT Potassium 5.1 mmol/L (3.3-5.0)
[2020-09-13] MEDS ORDERED: OPTIRAY 320 100ml IV ONE (15:59)
[2020-09-13 16:13] LABS: Mean Corpuscular Hgb Conc 34.2 g/dL (32-36); Platelet Count 148 K/uL (130-400)
[2020-09-13 16:17] LABS: Alanine Aminotransferase 55 U/L (12-78); Albumin Globulin Ratio 0.7 (0.9-2); Albumin Level 2.9 gm/dl (3.4-5.0); Alkaline Phosphatase 122 U/L (45-117); BUN Creatinine Ratio 19.4 (10-20); Bilirubin,Total 2.1 mg/dl (0.2-1); Blood Urea Nitrogen 19 mg/dl (7-18); Calcium 9.2 mg/dl (8.5-10.1); Carbon Dioxide 30 mmol/L (21-32); Chloride 101 mmol/L (98-107); Creatinine Clr Calc Pharmacy 53.1 ml/min; Est GFR (African American) 84.4; Est GFR (Non-African American) 72.8; Globulin 3.9 gm/dl (2.5-4.0); Glucose 124 mg/dl (70-99); Lipase 57 U/L (73-393); Phosphorus 2.8 mg/dl (2.5-4.9); Sodium 135 mmol/L (136-145); Total Protein 6.8 gm/dl (6.4-8.2); Troponin I < 0.015 ng/ml (0-0.045)
--- NOTE | 2020-09-13 16:19 | CT Scan Report ---
CT OF THE CHEST WITH IV CONTRAST CLINICAL HISTORY: ?metastatic disease, weight loss, weak, edema KNOWN HEPATIC MASS. COMPARISON STUDY: June 08, 2019 TECHNIQUE: Following the IV administration of 93 mL of Optiray-320, CT of the thorax was performed f rom the thoracic inlet to the lung bases. Images are reviewed in the axial, sagittal, and coronal javier hoda. IV contrast was administered without complication. A dose lowering technique was utilized adher ing to the principles of ALARA. CT DOSE: FINDINGS: Thyroid: Imaged portions of the thyroid gland are normal in appearance. Thoracic aorta: The thoracic aorta is normal in course and caliber, noting standard 3-vessel arch jamin erik. No aneurysm or dissection is seen. Pulmonary vasculature: There are pulmonary filling defects indicative of acute pulmonary embolism. HEART: The heart is normal in size. There are coronary artery calcifications. There is no pericardial effusion. There are postsurgical changes of a midline sternotomy. Lungs and pleural spaces: There are multiple bilateral pulmonary nodules, the largest of which is loc ated within the left lower lobe measuring 12 mm. The findings are highly suspicious for metastatic di sease. There are peripheral airspace opacities within the left upper lobe. There are right lower lobe and right middle lobe airspace opacities, likely representing a pneumonia. There is increased right hilar soft tissue with secondary bronchial narrowing. This could be infectious or neoplastic. Mediastinum: There are mildly enlarged mediastinal lymph nodes. An index subcarinal lymph node measur es 17 mm. Kellen: There is increased soft tissue within the right hilar region, neoplastic versus infectious/infl ammatory Axilla: There is no evidence of pathologic axillary lymphadenopathy Upper abdomen: There is a 20 cm hypervascular hepatic mass Skeletal structures: There are no lytic or blastic osseous lesions. IMPRESSION: 1. Pulmonary filling defects indicative of acute pulmonary embolism 2. Multiple bilateral pulmonary nodules. As highly suspicious for metastatic disease 3. Pulmonary airspace opacities within the left upper lobe right upper lobe and right middle lobe, li celso representing a pneumonia 4. Right hilar soft tissue with secondary bronchial wall narrowing, this could be infectious or neopl astic 5. Mild mediastinal lymphadenopathy 6. Enlarging 20 cm hypervascular hepatic mass ACT 112: Negative or not required by law. Electronically signed by: Bill Akers M.D. 09/13/2020 4:18 PM
--- NOTE | 2020-09-13 16:20 | CT Scan Report ---
CT head/brain wo/w con CT DOSE: TECHNIQUE: Noncontrast images were obtained through the brain in the axial plane. The sequence was re peated following administration of 93 Optiray 320. A dose lowering technique was utilized adhering t o the principles of ALARA. HISTORY: ?metastatic disease, weight loss, weak, edema, known hepatic mass COMPARISON: None. FINDINGS: No intra or extra-axial mass lesions are visualized. There is no CT evidence of acute cortical infarc tion. There is no evidence of midline shift. There is no acute hemorrhage. No calvarial fractures ar e visualized. There are moderate white matter hypodensities likely on a small vessel basis. There is no evidence of pathologic ventricular dilatation. There is no evidence of acute sinusitis Postcontrast images reveal no pathologically enhancing masses. IMPRESSION: 1. No acute intracranial findings. No CT evidence of intracranial metastasis. ACT 112: Negative or not required by law. Electronically signed by: Bill Akers M.D. 09/13/2020 4:18 PM
--- NOTE | 2020-09-13 16:21 | CT Scan Report ---
CT soft tissue neck w con HISTORY: ?metastatic disease, hoarseness, dysphagia TECHNIQUE: Multiaxial CT images of the neck were performed following the intravenous administration o f 93 cc of Optiray 320. COMPARISON STUDY: None. FINDINGS: Please refer the same day head CT for further evaluation of the brain. The pterygopalatine fossa are well-maintained. The parotid and submandibular glands are symmetric. Trace fluid within the paranasal sinuses. Otherwise, the major mucosal airways services are intact. No supraclavicular or c ervical lymphadenopathy. Prevertebral soft tissues and the epiglottis are normal in thickness. The jaky ng apices are clear. Mild emphysema. No suspicious lytic or blastic osseous lesions. There is a hypop lastic left vertebral artery. Moderate calcified plaque within the bilateral carotid bifurcations. No significant stenosis within the carotid arteries. The proximal left vertebral artery is not well vis ualized which could be due to the severe hypoplasia. The right vertebral and carotid arteries show no significant stenosis. IMPRESSION: 1. No evidence for metastatic disease within the neck. 2. Trace fluid within the paranasal sinuses. 3. Severely hypoplastic left vertebral artery. The proximal portion of the left vertebral is not well visualized which could be due to the severe hypoplasia. Age-indeterminate occlusion cannot be exclud ed. 4. No cervical lymphadenopathy. ACT 112: Negative or not required by law. Electronically signed by: Carlos Feng M.D. 09/13/2020 4:20 PM
[2020-09-13 16:29] LABS: Anisocytosis Present; Basophils # (auto) 0.01 K/uL (0-0.2); Basophils % (auto) 0.1 %; Eosinophils # (auto) 0.05 K/uL (0-0.5); Eosinophils % (auto) 0.7 %; Immature Granulocytes # (auto) 0.02 K/uL (0.00-0.02); Immature Granulocytes % (auto) 0.3 %; Lymphocytes # (auto) 0.96 K/uL (1.2-3.4); Monocytes % (auto) 9.4 %; Neutrophils # (auto) 5.67 K/uL (1.4-6.5); Neutrophils % (auto) 76.5 %
[2020-09-13] MEDS ORDERED: ENOXAPARIN 1 MG/KG SQ STA (16:33)
--- NOTE | 2020-09-13 16:35 | XRay Report ---
XR chest 1V portable CLINICAL HISTORY: Atypical chest pain COMPARISON STUDY: 06/08/2019 FINDINGS: The heart is normal in size. There are postsurgical changes of a midline sternotomy. There is interstitial thickening. There are right basilar airspace opacity suspicious for a pneumonia. Ther e is been resolution of the left lung airspace opacities and partial clearing of the peripheral right lower lung zone airspace opacities.[There is underlying parenchymal nodularity raising the possibili ty of metastatic disease. IMPRESSION: 1. Right lower lung zone airspace opacities suspicious for pneumonia 2. Subtle lung nodularity, possibly representing metastatic disease ACT 112: Negative or not required by law. Electronically signed by: Bill Akers M.D. 09/13/2020 4:34 PM
--- NOTE | 2020-09-13 16:36 | CT Scan Report ---
ABDOMEN AND PELVIS CT WITH IV CONTRAST CT DOSE: HISTORY: ?metastatic disease, weight loss, weak, edema TECHNIQUE: Multiaxial CT images of the abdomen and pelvis were performed following the use of intrave nous contrast. A dose lowering technique was utilized adhering to the principles of ALARA. COMPARISON STUDY: Abdomen and pelvis CT 08/27/2016. Chest CT 06/08/2019. FINDINGS: Patchy airspace opacities within the right lung base and multiple bilateral pulmonary nodul es within the lung bases. Dominant nodule within the left lower lobe measures 1.2 cm. There is a larg e hypervascular and heterogeneous mass involving the majority of the liver. This measures approximate ly 21 cm in length. The spleen, adrenal glands, pancreas, gallbladder, and kidneys are unremarkable. Prominent varicosities within the upper abdomen are noted. The main portal vein appears patent. Incom plete filling of the distal superior mesenteric vein may be due to mixing of contrast. Trace perihepa tic ascites. No pneumoperitoneum. No pneumatosis. No suspicious lytic or blastic osseous lesions. Pos tsternotomy changes. Status post aortobiiliac stent graft repair of abdominal aortic aneurysm. The an eurysm sac measures up to 3.5 cm in diameter. This is similar to the prior study. The bladder is unre markable. Colonic diverticulosis. No evidence for acute diverticulitis. No bowel wall thickening or o bstruction. Normal appendix. Mild to moderate body wall edema. IMPRESSION: 1. There is a 21 cm heterogeneous mass occupying the majority of the liver with trace perihepatic asc ites. This is consistent with a malignancy and may represent hepatocellular carcinoma. 2. Multiple pulmonary nodules consistent with metastatic disease. 3. Patchy airspace opacities within the right lung base consistent with a pneumonia. 4. The main portal vein appears patent. Incomplete filling within the distal superior mesenteric vein which may be due to mixing of contrast rather than thrombus. ACT 112: Negative or not required by law. Electronically signed by: Carlos Feng M.D. 09/13/2020 4:35 PM
--- NOTE | 2020-09-13 16:36 | XRay Report ---
XR knee RT 1 or 2V routine CLINICAL HISTORY: Right knee pain and swelling COMPARISON: None. DISCUSSION: No acute fractures or dislocations are visualized. There are advanced tricompartment oste oarthritic changes. There are vascular calcifications present. There is a trace joint effusion. IMPRESSION: 1. Advanced tricompartment osteoarthritic change 2. No acute fractures ACT 112: Negative or not required by law. Electronically signed by: Bill Akers M.D. 09/13/2020 4:35 PM
[2020-09-13] MEDS ORDERED: ENOXAPARIN INJ 60 MG/0.6 ML SYR SQ STA (16:48)
[2020-09-13 16:58] LABS: INR 1.4 (0.9-1.1); Partial Thromboplastin Ratio 1.1; Partial Thromboplastin Time 30.2 Seconds (21.0-31.0); Prothrombin Time 13.7 Seconds (9.0-12.0)
[2020-09-13 17:17] LABS: Bilirubin Direct 0.8 mg/dl (0-0.2)
[2020-09-13 17:18] LABS: Magnesium 2.2 mg/dl (1.8-2.4); Potassium 4.1 mmol/L (3.5-5.1)
[2020-09-13 17:29] LABS: T4 Free Thyroxine 1.05 ng/dl (0.8-1.6)
[2020-09-13 18:29] LABS: Appearance Urine Clear (Clear); Blood Urine Negative (Negative); Color Urine Dark Yellow; Glucose Urine UA Negative (Negative); Ketones Urine Trace (Negative); Leukocyte Esterase Urine Negative (Negative); Nitrite Urine Negative (Negative); Protein Urine Negative (Negative); Specific Gravity Urine > 1.045 (1.000-1.030); Urobilinogen Urine Negative (Negative); pH Urine 5.5 (4.5-7.5)
[2020-09-13 18:30] LABS: Bilirubin Urine 1+ (Negative)
--- NOTE | 2020-09-13 19:28 | History & Physical Report ---
Date of Service September 13, 2020 Assessment & Plan (1) Goals of care, counseling/discussion: Patient with longstanding reluctance for any further work-up of his liver mass. He now appears to have metastatic disease likely from this with complication of bilateral pulmonary emboli. Discussed diagnosis with the patient and his and he expresses continued wish for goal aimed towards comfort. Discussed switching Lovenox for apixaban given this goal which he is amenable to. Plan for palliative care referral with goal to get home with hospice If patient is to get worse while hospitalized will prescribe full comfort medications as discussed with the patient and his . No further lab draws Vital signs PRN - no need for routine checks PCP already taken steps today and stopped his simvastatin and HCTZ which is appropriate. (2) Metastatic disease: as above (3) Bilateral pulmonary embolism: Start apixaban 10 mg twice daily for 7 days followed by 5 mg twice daily Stop aspirin since starting on anticoagulation (4) Pneumonia: Unlikely to mount a typical immune response and appearance on CT suggestive of pneumonia with elevated procalcitonin (although may be falsely elevated in setting of metastatic disease). Consult speech to assess and teach mitigation efforts for aspirations. Considered treating with Augmentin however patient declined and given history of c. diff, no hypoxia on room air and slight changes on CT this seems reasonable. No fevers, chills or rapid decline. (5) Dysphonia: Suspected recurrent laryngeal nerve involvement. Consult speech to teach safer eating as at risk of aspirations (6) Poor appetite: Start dexamethasone 4mg PO daily, this may also help temporarily tumor edema reduction (7) Ambulatory dysfunction: Will defer PT/OT evals as plan for home with hospice. However consider this if patient has to stay in hospital for multiple days. (8) History of Clostridioides difficile colitis: Monitor for watery diarrhea with antibiotic use (9) Hypertension: Continue metoprolol tartrate 50mg PO BID to avoid rebound tachycardia (10) BPH (benign prostatic hyperplasia): Continue alfuzosin and finasteride to avoid urine retention (11) Weight loss: Secondary to metastatic ca. Liberalize diet. Encourage eating snacks. (12) Severe protein-calorie malnutrition: as above Admission and Anticipated Discharge Date Admission Date: September 13, 2020 History of Present Illness Chief Complaint: Failure to thrive Primary Care Provider: Karina Campbell MD Gilmer Bragg is an 85 year old male who presents to the ER with multiple concerns after visiting his PCP earlier today and recommended going to the ER. Symptoms including poor appetite, loss of his voice, shortness of breath, loss of voice, ambulatory dysfunction, weight loss, lower extremity swelling, right knee pain. He has a history of a liver mass which he chose not to have further worked up since 2019. His symptoms have been slowly progressive over the last year. In the ER he underwent extensive imaging of his head, neck, chest and abdomen/pelvis. 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 He was treated for the pulmonary emboli with Lovenox and referred to medicine for admission and ongoing management. Allergies Allergy/AdvReac Type Severity Reaction Status Date / Time No Known Allergies Allergy Verified 09/13/20 13:29 Home Medications Medication Instructions Recorded Confirmed Type aspirin 81 mg tablet,delayed 81 mg PO BID #30 tab 03/26/19 09/13/20 History release cyanocobalamin (vitamin B-12) 1,000 mcg PO DAILY #100 tab 03/26/19 09/13/20 History 1,000 mcg tablet nitroglycerin 0.4 mg sublingual 0.4 mg SL ONCE PRN #30 tab 03/28/19 09/13/20 Rx tablet Centrum Silver 1 tab PO DAILY 06/08/19 09/13/20 History cholecalciferol (vitamin D3) 2,000 unit PO DAILY 06/08/19 09/13/20 History [Vitamin D3] pyridoxine (vitamin B6) [Vitamin 100 mg PO DAILY 06/08/19 09/13/20 History B-6] metoprolol tartrate 50 mg tablet 50 mg PO BID #180 tab 07/10/20 09/13/20 Rx finasteride 5 mg tablet 5 mg PO DAILY #90 tab 08/06/20 09/13/20 Rx alfuzosin 10 mg PO QPM 09/13/20 09/13/20 History Past Med/Surg History Medical History CVA (cerebral vascular accident) Diarrhea Dyspnea Gait disturbance Generalized osteoarthritis of multiple sites History of elevated PSA Hyperlipidemia Hypertension Impaired sensation Low back pain Multifocal pneumonia Pulmonary emphysema Seborrheic keratosis Skin lesion of face Urinary incontinence Urinary retention Vitamin B12 deficiency Surgical History S/P aortic aneurysm repair S/P arthroscopic partial medial meniscectomy S/P arthroscopy of knee S/P CABG x 3 S/P rotator cuff repair Status post AAA (abdominal aortic aneurysm) repair 2011 Family History Brother Bowel cancer Non Hodgkin's lymphoma Mother Cardiac cancer Diabetes Uterine cancer Father Gallbladder cancer Denies family history of Prostate cancer Social History Smoking Status: Former smoker Do You Dip or Chew Tobacco: No; Hx Alcohol Use: No Hx Substance Use: No Preferred Language: Sinhala Communication Ability: Effective Communication Ability Comment: soft spoken Visual Impairment: No Limitations Hearing Ability: Normal Pediatric Speech Language Pathologist Required: No Beliefs That Will Affect Care: None marital status: Current Living Situation: Spouse current occupational status: retired Other Information That Helps Us Care for You: No Feels Safe at Home: Yes Safety Concerns: Feels Safe At This Time Seatbelt Use: always Assistive Devices: Glasses Review of Systems Review of Systems: All systems reviewed & are unremarkable except as noted in HPI & below Constitutional: + body aches, + fatigue and + weakness; no fever and no chills Eyes: no problem reported Respiratory: + dyspnea; no cough Cardiovascular: + orthopnea and + edema; no chest pain and no syncope Gastrointestinal: + abdominal pain and + early satiety; no heartburn, no constipation, no diarrhea/loose stools, no blood in stools and no melena Genitourinary: no problem reported Musculoskeletal: + joint pain (right knee) Neurologic: + gait abnormality, + unsteadiness and + generalized weakness; no falls, no tremor(s) and no dizziness Physical Exam Constitutional: + ill appearing and + cachectic; no acute distress Eyes: + anicteric sclerae; normal pupil size ENMT: Mouth: + dry oral mucous membranes Neck: trachea midline Respiratory: normal respiratory effort; no respiratory distress, no retractions and does not use accessory muscles Cardiovascular: Rate/Rhythm: regular rate and regular rhythm Extremities: normal capillary refill and + pedal edema Gastrointestinal (Abdomen): normal bowel sounds, soft, nontender, no hepatosplenomegaly Neurologic: awake Psychiatric: A+Ox3, euthymic affect Results & Data Results & Data ([facility]) Vital Signs (Past 12 Hours) Vital Signs Temp Pulse Resp BP Pulse Ox 09/13/20 18:30 68 16 145/71 H 98 09/13/20 18:00 63 17 147/74 H 96 09/13/20 17:30 61 16 136/60 97 09/13/20 17:00 63 19 149/74 H 97 09/13/20 16:18 69 12 142/69 H 96 09/13/20 15:30 63 13 136/66 99 09/13/20 15:15 62 17 133/63 97 09/13/20 15:13 95 09/13/20 14:29 36.7 C 55 L 18 152/[address] head/brain wo/w con IMPRESSION: 1. No acute intracranial findings. No CT evidence of intracranial metastasis. CT soft tissue neck w con IMPRESSION: 1. No evidence for metastatic disease within the neck. 2. Trace fluid within the paranasal sinuses. 3. Severely hypoplastic left vertebral artery. The proximal portion of the left vertebral is not well visualized which could be due to the severe hypoplasia. Age-indeterminate occlusion cannot be excluded. 4. No cervical lymphadenopathy. CT OF THE CHEST WITH IV CONTRAST IMPRESSION: 1. Pulmonary filling defects indicative of acute pulmonary embolism 2. Multiple bilateral pulmonary nodules. As highly suspicious for metastatic disease 3. Pulmonary airspace opacities within the left upper lobe right upper lobe and right middle lobe, likely representing a pneumonia 4. Right hilar soft tissue with secondary bronchial wall narrowing, this could be infectious or neoplastic 5. Mild mediastinal lymphadenopathy 6. Enlarging 20 cm hypervascular hepatic mass ABDOMEN AND PELVIS CT WITH IV CONTRAST IMPRESSION: 1. There is a 21 cm heterogeneous mass occupying the majority of the liver with trace perihepatic ascites. This is consistent with a malignancy and may represent hepatocellular carcinoma. 2. Multiple pulmonary nodules consistent with metastatic disease. 3. Patchy airspace opacities within the right lung base consistent with a pneumonia. 4. The main portal vein appears patent. Incomplete filling within the distal superior mesenteric vein which may be due to mixing of contrast rather than thrombus. Medications Administered ER Medications given: Lovenox 60 mg SQ NSS 500ml bolus ECG Indication: SOB/dyspnea Rate (beats per minute): 60 Rhythm: normal sinus Comparison ECG Date: from (Jun 08, 2019) Change: the following changes noted (PACs no longer present) Code Status & VTE Plan Code Status DNR/DNI - treatment aimed towards comfort VTE Prophylaxis Plan VTE Prophylaxis will be ordered: No PG Care Time/CCT Total # of Minutes Spent Total Time Spent with Patient: Total time spent is greater than 50% in coordination of care (as documented) at patient's floor/unit and/or counseling patient: Coding Level of Care Code 28345 Initial Inpt Care Lvl 3 Diagnoses Goals of care, counseling/discussion Z71.89 Metastatic disease C79.9 Area of secondary neoplastic involvement: unspecified site Bilateral pulmonary embolism I26.99 Pneumonia J18.9 Laterality: bilateral Lung location: unspecified part of lung Pneumonia type: due to unspecified organism Dysphonia R49.0 Poor appetite R63.0 Ambulatory dysfunction R26.2 History of Clostridioides difficile colitis Z86.19 Hypertension I10 BPH (benign prostatic hyperplasia) N40.0 Weight loss R63.4 Severe protein-calorie malnutrition E43 (1) Metastatic disease Area of secondary neoplastic involvement: unspecified site Qualified Code(s): C79.9 - Secondary malignant neoplasm of unspecified site (2) Pneumonia Laterality: bilateral Lung location: unspecified part of lung Pneumonia type: due to unspecified organism Qualified Code(s): J18.9 - Pneumonia, unspecified organism
[2020-09-13] MEDS ORDERED: ONDANSETRON INJ 2 MG/ML 2 ML VIAL IV PRN (20:19)
[2020-09-13] MEDS ORDERED: ALUMINUM/MAGNESIUM SUSP 30 ML UDC PO PRN (20:19)
[2020-09-13] MEDS ORDERED: POLYETHYLENE (MIRALAX) 17 GM PACK PO PRN (20:19)
[2020-09-13] MEDS ORDERED: ACETAMINOPHEN 325 MG TAB PO PRN (20:19)
[2020-09-13] MEDS ORDERED: ASPIRIN 81 MG ECTAB PO SCH (21:00)
[2020-09-13] MEDS: ALFUZOSIN HCL 10 MG TAB PO SCH (21:33)
[2020-09-13] MEDS: METOPROLOL TARTRATE 50 MG TAB PO SCH (21:33)
[2020-09-13] MEDS ORDERED: AMOXICILLIN/CLAVULANATE 875 MG TAB PO SCH (21:50)
--- NOTE | 2020-09-14 07:19 | Electrocardiogram Report ---
Test Reason : Blood Pressure : / mmHG Vent. Rate : 060 BPM Atrial Rate : 060 BPM P-R Int : 178 ms QRS Dur : 088 ms QT Int : 418 ms P-R-T Axes : 009 -77 075 degrees QTc Int : 418 ms Normal sinus rhythm Left axis deviation Abnormal ECG When compared with ECG of 08-JUN-2019 06:24, Premature atrial complexes are no longer Present Confirmed by Tim Sinha ([id number] on 09/14/2020 7:19:05 AM Referred By: Karina Moran Confirmed By:Tim Sinha
[2020-09-14] MEDS: CEROVITE ADV FORMULA TAB PO SCH (08:34)
[2020-09-14] MEDS: CYANOCOBALAMIN 500 MCG TABLET (VITAMIN B-12) PO SCH (08:35)
[2020-09-14] MEDS: METOPROLOL TARTRATE 50 MG TAB PO SCH ×2 (08:35→21:17)
[2020-09-14] MEDS: CHOLECALCIFEROL 1,000 UNITS 25 MCG TAB PO SCH (08:35)
[2020-09-14] MEDS: PYRIDOXINE HCL 50 MG TAB PO SCH (08:35)
[2020-09-14] MEDS: APIXABAN 5 MG TABLET PO SCH ×2 (08:36→21:14)
[2020-09-14] MEDS: FINASTERIDE 5 MG TAB PO SCH (08:36)
[2020-09-14] MEDS: dexAMETHasone 4 MG TAB PO SCH (08:37)
--- NOTE | 2020-09-14 11:16 | Hospitalist Progress Note ---
Date of Service September 14, 2020 Assessment & Plan (1) Pulmonary embolism, bilateral: 85yo male with complex medical history presented with bilateral PE and failure to thrive in the setting of likely worsening metastatic disease. Patient understands he is approaching end of life and has chosen to withdraw non- palliative treatment and refuse further labs or workup of ongoing conditions. Likely discharge soon with home hospice. End of life care, presumed-metastatic disease, liver mass -patient refuses any further workup of his condition and expresses understanding that he is dying -no further labs -comfort care -case management assisting with arranging home hospice -patient's feeling overwhelmed with care of patient; patient's son and [id number] expressed intent to make temporary life adjustments to allow them to assist -plan for discharge home once bed and bedside commode are arranged -PT/OT referral deferred due to plan for home hospice, will reconsider if patient stays -palliative care referral -c/w zofran 4mg IV q6h prn Bilateral PE -eliquis 10mg bid for seven total days followed by 5mg bid -lovenox discontinued -aspirin discontinued HTN -c/w metoprolol tartrate 50mg PO bid to avoid rebound tachycardia Pneumonia -patient without SOB or other symptoms at this time beyond fatigue -patient refusing treatment as above -consult speech for safety/aspiration prevention with eating Dysphonia -possibly due to fatigue, recurent laryngeal nerve involvement of presumed metastatic process, others -no treatment as above -speech consult for safety with eating Failure to thrive, poor appetite -c/w dexamethasone 4mg PO qAM -encourage PO, liberalize diet BPH -c/w finasteride, alfuzosin FENGI: liberalized diet DVT ppx: eliquis Isolation: none Consults: palliative care, case management Held (discontinued) home meds: HCTZ, simvastatin Code status: DNR/DNI Dispo: pending home hospice (2) Adult failure to thrive: (3) Dysphonia: (4) Severe protein-calorie malnutrition: (5) Liver mass: Admission and Anticipated Discharge Date Admission Date: September 13, 2020 Supervising Physician Co-Signing Physician Notes I personally examined the patient and verified all rodriguez points of history and exam, discussed case, and agree with decision making with Dr Diaz really wants to go home, notes that she is starting to have more of a hard time handling him. for hospice. sounds like she needs hospital bed and bedside commode to help manage. vitals noted nad heent nc at mmm breathing unlabored no accessory muscles good effort skin no rashes no pallor or icterus metastatic malignancy - for home/hospice PE - anticoagulation for comfort home once bed/commode set up, anticipate probably tomorrow Subjective No acute events since arriving to the floor. Patient seen at bedside this morning. Feels "fine" today and has no concerns or complaints. Eager to get home. Very adamant that he does not want to be examined, have blood drawn, or undergo any further workup. Understands the consequences of Review of Systems Constitutional: + fatigue; no fever and no chills Ear, Nose, Mouth, Throat: + change in voice Respiratory: no cough and no dyspnea Cardiovascular: no chest pain, no palpitations and no lightheadedness Gastrointestinal: no abdominal pain, no nausea and no vomiting Genitourinary: no dysuria Physical Exam Physical Exam: patient refused physical exam Resident Activity Tracking Resident Involvement: Resident Care Provided Care Provided: Adult Hospital Medicine
--- NOTE | 2020-09-14 15:56 | Billing Data ---
Date of Service September 14, 2020 Coding Level of Care Code 17636 Subseq Hosp Care Lvl 3
[2020-09-14] MEDS: ALFUZOSIN HCL 10 MG TAB PO SCH (21:17)
[2020-09-15] MEDS: APIXABAN 5 MG TABLET PO SCH (10:00)
[2020-09-15] MEDS: CHOLECALCIFEROL 1,000 UNITS 25 MCG TAB PO SCH (10:39)
[2020-09-15] MEDS: dexAMETHasone 4 MG TAB PO SCH (10:39)
[2020-09-15] MEDS: CEROVITE ADV FORMULA TAB PO SCH (10:39)
[2020-09-15] MEDS: PYRIDOXINE HCL 50 MG TAB PO SCH (10:40)
[2020-09-15] MEDS: METOPROLOL TARTRATE 50 MG TAB PO SCH (10:42)
[2020-09-15] MEDS: FINASTERIDE 5 MG TAB PO SCH (10:42)
[2020-09-15] MEDS: CYANOCOBALAMIN 500 MCG TABLET (VITAMIN B-12) PO SCH (10:51)
--- NOTE | 2020-09-15 16:59 | Discharge Summary ---
Date of Service September 15, 2020 Admission HPI Per Admitting Provider Gilmer Bragg is an 85 year old male who presents to the ER with multiple concerns after visiting his PCP earlier today and recommended going to the ER. Symptoms including poor appetite, loss of his voice, shortness of breath, loss of voice, ambulatory dysfunction, weight loss, lower extremity swelling, right knee pain. He has a history of a liver mass which he chose not to have further worked up since 2019. His symptoms have been slowly progressive over the last year. In the ER he underwent extensive imaging of his head, neck, chest and abdomen/pelvis. 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 He was treated for the pulmonary emboli with Lovenox and referred to medicine for admission and ongoing management. Admission Exam Per Admitting Provider GENERAL: Awake, alert, well-appearing, in no acute distress. HENT: Normocephalic, atraumatic. Oropharynx unremarkable. EYES: Normal conjunctiva. Sclera non-icteric. NECK: Inspection normal. Supple and full ROM. No nuchal rigidity. CARDIAC: +S1S2 RRR, no murmurs. RESPIRATORY: Clear to auscultation. No wheezes or rales. Normal respiratory effort. Ongoing mildly congested cough. On room air. GI: +BS, soft, non-distended. No tenderness to palpation. No rebound or guarding. Questionable firmness in the right upper quadrant. EXTREMITIES: No pedal edema or calf tenderness. Moving all extremities naturally and easily. NEURO: No gross neuro deficits. Principal Diagnosis PE Discharge Exam Patient refused physical exam. Discharge Data Allergies Allergy/AdvReac Type Severity Reaction Status Date / Time No Known Allergies Allergy Verified 09/13/20 13:29 Consultations 09/13/20 16:33 ED Decision to Admit Stat 09/13/20 20:19 Consult Palliative Care Routine Ordered Studies 09/13/20 15:37 CT abd pelvis IV con only Stat CT chest diagnostic w con Stat CT head/brain wo/w con Stat CT soft tissue neck w con Stat Hospital Course (1) Goals of care, counseling/discussion: Patient was admitted for bilateral PE, thought to be secondary to a presumed ongoing and worsening metastatic procress, given patient's history of a liver mass for which he has refused workup, [id number] smoking history, and current progressive weakness and failure to thrive. He accepted treatment with lovenox, which did result in an improvement of his SOB, and was then transitioned to eliquis to continue at home as a comfort measure. Patient was able to engage in a rational discussion regarding his health, voiced understanding that he was dying, and expressed his wishes to be comfort care only. Vitals remained stable. Patient was discharged to home hospice on hospital day three. Total Time Total Time Spent Total Time Spent (In Minutes): <30 Discharge Plan Discharge Items Patient Disposition: Hospice - Home Reason For Visit: Bilateral pulmonary emboli, Metastatic diease Discharge Diagnosis: Pulmonary embolism Activity: Resume your previous activity Non-emergency contact: Primary Care Provider Call non-emergency contact if: you have any medication questions and your pain is not controlled Follow-up/Referrals: Karina Campbell MD [Primary Care Provider] - Diet: Regular Addtl Attending Provider Instructions: You were admitted for pulmonary embolism, which is a blood clot in the lung. You were treated with blood thinners. We have prescribed a new medicine called Eliquis to help prevent additional clots from forming. Instructions on taking this medicine are described below During your stay, other ongoing health concerns were noticed, including pneumonia as well as what is likely to be cancer. You informed us that you understood you are nearing the end of life, and that you did not want further evaluation or treatment of these conditions, or other potential medical conditions. You decided to direct your attention towards comfort care, which means using medical care to make you comfortable, instead of the medical cond itions themselves. You decided to go home with home hospice. We respect your decision, and wish you and your family the best. Below are the medicines you can take to help stay comfortable: -Eliquis (apixaban) is used to prevent new blood clots from forming. From 09/15 to 09/20, take 10mg (two tablets) twice daily. From 09/21 onward, take 5mg (one tablet) twice daily. -Alfuzosin is used to treat difficulty with urination. Continue taking alfuzosin 10mg once daily at nighttime. -Finasteride is also used to treat difficulty with urination. Continue taking finasteride 5mg once daily. -Metoprolol tartrate is used to treat blood pressure, and can prevent uncomfortable palpitations. Continue taking metoprolol tartrate 50mg twice daily. -Zofran can be used to treat nausea. Take zofran 4mg every six hours as needed if you experience nausea. -Acetaminophen (tylenol) can be used to treat pain or fever. Take acetaminophen 650mg every four hours as needed if you experience fever or pain. You were previously on HCTZ (hydrochlorothiazide) and simvastatin. It is okay to stop taking these medicines. Thank you for allowing us to participate in your care. Pending Studies at Discharge: No Stand-Alone Forms: My [facility] Medications and DC Order Prescriptions: New acetaminophen 325 mg Tablet 650 mg PO Q4H PRN (Reason: fever or pain) 30 Days Qty: 120 RF: 0 ondansetron HCl [Zofran] 4 mg tablet 4 mg PO Q6H PRN (Reason: nausea) 30 Days Qty: 120 RF: 0 Eliquis 5 mg (74 tabs) tablets,dose pack See Rx Instructions .ROUTE .COMPLEX Qty: 74 RF: 0 Continued finasteride 5 mg tablet 5 mg PO DAILY Qty: 90 RF: 4 metoprolol tartrate 50 mg tablet 50 mg PO BID Qty: 180 RF: 3 nitroglycerin 0.4 mg tablet, sublingual 0.4 mg SL ONCE PRN (Reason: chest pain) Qty: 30 RF: 0 alfuzosin 10 mg tablet extended release 24 hr 10 mg PO QPM RF: 0 Discontinued aspirin 81 mg tablet,delayed release (DR/EC) 81 mg PO BID Qty: 30 RF: 0 cyanocobalamin (vitamin B-12) 1,000 mcg tablet 1,000 mcg PO DAILY Qty: 100 RF: 0 Centrum Silver 0.4-300-250 mg-mcg-mcg Tablet 1 tab PO DAILY RF: 0 cholecalciferol (vitamin D3) [Vitamin D3] 2,000 unit Tablet 2,000 unit PO DAILY RF: 0 pyridoxine (vitamin B6) [Vitamin B-6] 100 mg Tablet 100 mg PO DAILY RF: 0 Discharge Orders: Discharge Order (Routine); Ordered 09/15/20 Ordered By: Dave Diaz Admission Data Admit Date/Time: 09/13/20 17:53 Attending Provider: Sly Bryan Admit Provider: Guillermo Muller Primary Care Provider: Karina Campbell V. Other Providers: Guillermo Muller ; Torrie Lepe Other Interventions: Discharge Summary Assessment (RN) Last Done: 09/15/20 11:13 Supervising Physician Co-Signing Physician Notes I personally examined the patient and verified all rodriguez points of history and exam, discussed case, and agree with decision making with Dr Diaz Set up to go home. No new issues. vitals noted nad heent nc at mmm breathing unlabored no accessory muscles good effort skin no rashes no pallor or icterus metastatic malignancy - for home/hospice today PE - anticoagulation for comfort (Eliquis) Home with hospice today Resident Activity Tracking Resident Involvement: Resident Care Provided Care Provided: Adult Hospital Medicine
--- NOTE | 2020-09-15 18:41 | Billing Data ---
Date of Service September 15, 2020 Coding Level of Care Code D/C Day Management <30 mins
== END 2020-09-15 11:30 | disposition hospice, home (50) | DRG 175 ==
LOC: ED 14:26 → SUATTDRO 17:53 → 2W 17:53